=== PATIENT | male | born 1960 | race African-American/Black ===

== ENCOUNTER 2016-11-28 10:03 | Inpatient (IN) | payer OTHER ==
[~2016-11-28] VITALS: Ht 182.9 cm; Wt 78.4 kg
[~2016-11-28 10:03] MED LIST: ACTIFED PO; AMITRIPTYLINE H10 MG PO; ASPIR 8181 M1 PO; ASPIR-LOW81 MG PO; ASPIRIN325 MG PO; CARVEDILOL25 MG PO; CELEXA10 MG PO; CILOSTAZOL100 MG PO; CIPRO500 MG PO; CITALOPRAM HBR10 MG PO; CLINDAMYCIN HC300 MG PO; COREG25 M1 PO; DAILY MULTIPLE1 EACH PO; DOCUSATE SODIU100 MG PO; DOLOPHINE HCL5 MG PO; FUROSEMIDE40 MG PO; GABAPENTIN300 MG PO; GABAPENTIN600 MG PO; GLUCOPHAGE500 MG PO; LEVAQUIN500 MG PO; LEVEMIR FL100 UNIT/1 SC; LEVEMIR100 UNIT/2 SC; LISINOPRIL10 MG PO; METOPROLOL TAR100 MG PO; MUSCLE RUB CREA85 GM TP; NEURONTIN300 MG PO; NEURONTIN400 MG PO; NEURONTIN800 MG PO; NICODERM CQ1 EAC1 TD; NICOTINE PATCH1 EAC1 TD; NOVOLIN,HU100 UNITS/ SC; NOVOLOG MI100 UNIT/M SC; NOVOLOG PE100 UNITS/ SC; NOVOLOG PE100 UNITS/ SQ; OMEPRAZOLE20 M2 PO; OXAYDO5 MG PO; OXYCODONE HCL10 MG PO; OXYCODONE HCL5 MG PO; PERCOCET 5/31 TABLET PO; PLAVIX75 MG PO; PRINIVIL10 MG PO; PRINIVIL20 MG PO; ROXICODONE5 MG PO; SIMVASTATIN20 MG PO; SPIRONOLACTONE25 MG PO; STOOL SOFTENER100 MG PO; THERAGRAN1 TABLET PO; VISINE TEARS DR30 ML BOTH EYES; VITAMIN A & D60 GM TP; ZESTRIL40 MG PO
[2016-11-28 12:37] LABS: HEMATOCRIT 34.2 % (38.0-50.0); MCH 27.4 PG (29.0-34.0); MCHC 34.2 G/DL (30.0-36.0); MCV 80.1 FL (86-99); MEAN PLAT.VOLUME 9.6 uM^3 (9.0-12.4); PLATELET COUNT 296 K/uL (156-360); RBC DIS.WIDTH-CV 15.3 % (11.8-14.6); RED BLOOD COUNT 4.27 M/uL (4.00-5.50); WHITE BLOOD COUNT 6.4 K/uL (4.1-10.2)
[2016-11-28 12:46] LABS: CHLORIDE 103 mEq/L (99-109); POTASSIUM 4.6 mEq/L (3.7-5.4); SODIUM 139 mEq/L (136-147)
[2016-11-28 12:47] LABS: INTER. NORMALIZED RATIO 1.2; PTT 35.4 (25-32)
[2016-11-28 12:48] LABS: GLUCOSE 145 mg/dL (70-99)
[2016-11-28 12:50] LABS: ANION GAP 15 MEQ/L (2-14); TOTAL BILIRUBIN 0.7 mg/dL (0.0-1.0)
[2016-11-28 12:52] LABS: ALKALINE PHOSPHATASE 85 IU/L (3-129); GFR ESTIMATE (CALCULATED) > 59 mL/min/
[2016-11-28 12:53] LABS: UREA NITROGEN (BUN) 17 mg/dL (9-23)
[2016-11-28 13:02] LABS: TROP-I INTERPRETATION NEGATIVE; TROPONIN-I 0.04 ng/mL (0.0-0.30)
[2016-11-28] MEDS ORDERED: LISINOPRIL40 MG PO (13:34)
[2016-11-28] MEDS ORDERED: MAGNESIUM OXID400 MG PO (13:35)
[2016-11-28] MEDS ORDERED: SERTRALINE HCL50 MG PO (13:35)
[2016-11-28 15:41] LABS: D-DIMER ELISA 1.32 mg/L FEU (< 0.57)
[2016-11-28 15:56] LABS: HDL CHOLESTEROL 51 MG/DL (Desirable>=40); LDL CHOLESTEROL 121 mg/dL (Desirable<100); NON-HDL CHOLESTEROL 158 mg/dL (Desirable<160); TOTAL CHOLESTEROL 209 mg/dL (Desirable<200); TRIGLYCERIDES 186 MG/DL (Normal: <150)
[2016-11-28] MEDS ORDERED: NOVOLOG PE100 UNITS/ SC (17:42)
[2016-11-28] MEDS ORDERED: NOVOLOG MI100 UNIT/M SC (17:43)
[2016-11-28 18:43] LABS: POINT-OF-CARE METER ID UU14100415
[2016-11-28 19:14] LABS: TROP-I INTERPRETATION NEGATIVE; TROPONIN-I 0.06 ng/mL (0.0-0.30)
[2016-11-28 20:45] VITALS: BP 148/93
[2016-11-28 21:51] LABS: POINT-OF-CARE METER ID UU13113807
[2016-11-29] VITALS (7 sets, daily range): BP systolic 115–136; BP diastolic 74–90
[2016-11-29 03:06] LABS: TROP-I INTERPRETATION NEGATIVE; TROPONIN-I 0.05 ng/mL (0.0-0.30)
[2016-11-29 06:53] LABS: HEMATOCRIT 32.8 % (38.0-50.0); MCH 26.4 PG (29.0-34.0); MCHC 33.2 G/DL (30.0-36.0); MCV 79.4 FL (86-99); MEAN PLAT.VOLUME 9.4 uM^3 (9.0-12.4); PLATELET COUNT 249 K/uL (156-360); RBC DIS.WIDTH-CV 15.4 % (11.8-14.6); RBC DIS.WIDTH-SD 44.5 % (39-53); RED BLOOD COUNT 4.13 M/uL (4.00-5.50); WHITE BLOOD COUNT 4.5 K/uL (4.1-10.2)
[2016-11-29 07:28] LABS: ANION GAP 8 MEQ/L (2-14); CHLORIDE 102 MEQ/L (99-109); GFR ESTIMATE (CALCULATED) > 59 mL/min/; GLUCOSE 52 mg/dL (70-99); SAMPLE HEMOLYSIS CHECK 0; SAMPLE ICTERIC CHECK 0; SAMPLE LIPEMIA CHECK 0; SODIUM 138 MEQ/L (136-147); UREA NITROGEN (BUN) 16 mg/dL (9-23)
[2016-11-29 08:42] LABS: POINT-OF-CARE METER ID UU13113807
[2016-11-29 08:42] LABS: POINT-OF-CARE METER ID UU13113807
[2016-11-29 11:13] LABS: POINT-OF-CARE METER ID UU13113807
[2016-11-29 11:42] LABS: POINT-OF-CARE METER ID UU13113807
[2016-11-29 14:33] LABS: Estimated Average Glucose 146 mg/dL (70-123); HEMOGLOBIN A1c (GLYCOHEMOGLOB) 6.7 % HGB (Below 5.7)
[2016-11-29 17:07] LABS: POINT-OF-CARE METER ID UU14149398
[2016-11-29 21:46] LABS: POINT-OF-CARE METER ID UU14149398
[2016-11-30] VITALS: BP 121/72
[2016-11-30 04:09] VITALS: BP 113/66
[2016-11-30 06:12] LABS: ANION GAP 7 MEQ/L (2-14); CHLORIDE 100 MEQ/L (99-109); GFR ESTIMATE (CALCULATED) 51 mL/min/; POTASSIUM 3.8 MEQ/L (3.7-5.4); SAMPLE HEMOLYSIS CHECK 0; SAMPLE ICTERIC CHECK 0; SAMPLE LIPEMIA CHECK 0; SODIUM 138 MEQ/L (136-147); UREA NITROGEN (BUN) 21 mg/dL (9-23)
[2016-11-30 06:17] LABS: GLUCOSE 96 mg/dL (70-99)
[2016-11-30 07:57] VITALS: BP 114/63
[2016-11-30 08:20] LABS: POINT-OF-CARE METER ID UU14149396
[2016-11-30 11:23] VITALS: BP 90/66
[2016-11-30 11:50] LABS: POINT-OF-CARE METER ID UU14149396
[2016-11-30 15:53] VITALS: BP 115/72
[2016-11-30 16:28] LABS: POINT-OF-CARE METER ID UU13113807
[2016-11-30 20:08] VITALS: BP 112/68
[2016-11-30 20:26] LABS: POINT-OF-CARE METER ID UU13113807; POINT-OF-CARE USER ID 608261316
[2016-12-01 00:41] VITALS: BP 96/52
[2016-12-01 03:39] VITALS: BP 116/55
[2016-12-01 07:30] LABS: HEMATOCRIT 30.6 % (38.0-50.0); MCHC 33.7 G/DL (30.0-36.0); MCV 80.3 FL (86-99); PLATELET COUNT 229 K/uL (156-360); RBC DIS.WIDTH-CV 15.4 % (11.8-14.6); RBC DIS.WIDTH-SD 45.4 % (39-53); RED BLOOD COUNT 3.81 M/uL (4.00-5.50)
[2016-12-01 07:48] LABS: ANION GAP 9 MEQ/L (2-14); CHLORIDE 100 MEQ/L (99-109); GFR ESTIMATE (CALCULATED) > 59 mL/min/; GLUCOSE 94 mg/dL (70-99); SAMPLE HEMOLYSIS CHECK 0; SAMPLE ICTERIC CHECK 0; SAMPLE LIPEMIA CHECK 0; SODIUM 136 MEQ/L (136-147); UREA NITROGEN (BUN) 17 mg/dL (9-23)
[2016-12-01 08:00] VITALS: BP 117/61
[2016-12-01 08:18] LABS: POINT-OF-CARE METER ID UU14149396
[2016-12-01 11:08] LABS: POINT-OF-CARE METER ID UU13113675; POINT-OF-CARE USER ID 515036437
[2016-12-01 12:26] VITALS: BP 147/85
[2016-12-01 12:45] LABS: POINT-OF-CARE METER ID UU14149396
[2016-12-01 15:46] VITALS: BP 130/77
[2016-12-01 17:12] LABS: POINT-OF-CARE METER ID UU14149396
[2016-12-01 19:56] VITALS: BP 132/77
[2016-12-01 20:36] LABS: POINT-OF-CARE METER ID UU14149396
[2016-12-02] VITALS (7 sets, daily range): BP systolic 123–163; BP diastolic 66–82
[2016-12-02 08:17] LABS: POINT-OF-CARE METER ID UU14149398
[2016-12-02 11:56] LABS: POINT-OF-CARE METER ID UU14149398
[2016-12-02 16:31] LABS: POINT-OF-CARE METER ID UU14149396
[2016-12-02 21:29] LABS: POINT-OF-CARE METER ID UU13113807
[2016-12-03 03:45] VITALS: BP 135/79
[2016-12-03 06:17] LABS: HEMATOCRIT 29.4 % (38.0-50.0); MCH 26.4 PG (29.0-34.0); MCHC 32.7 G/DL (30.0-36.0); MEAN PLAT.VOLUME 9.7 uM^3 (9.0-12.4); PLATELET COUNT 184 K/uL (156-360); RBC DIS.WIDTH-CV 15.3 % (11.8-14.6); RBC DIS.WIDTH-SD 45.4 % (39-53); RED BLOOD COUNT 3.63 M/uL (4.00-5.50); WHITE BLOOD COUNT 6.6 K/uL (4.1-10.2)
[2016-12-03 06:46] LABS: ANION GAP 8 MEQ/L (2-14); CHLORIDE 102 MEQ/L (99-109); GFR ESTIMATE (CALCULATED) > 59 mL/min/; GLUCOSE 150 mg/dL (70-99); POTASSIUM 4.4 MEQ/L (3.7-5.4); SAMPLE HEMOLYSIS CHECK 0; SAMPLE ICTERIC CHECK 0; SAMPLE LIPEMIA CHECK 0; SODIUM 135 MEQ/L (136-147); UREA NITROGEN (BUN) 18 mg/dL (9-23)
[2016-12-03 08:00] VITALS: BP 128/72
[2016-12-03 08:11] LABS: POINT-OF-CARE METER ID UU13113807
[2016-12-03 12:00] VITALS: BP 142/73
[2016-12-03 12:03] LABS: POINT-OF-CARE METER ID UU13113807
[2016-12-03 15:44] VITALS: BP 163/81
[2016-12-03 17:01] LABS: POINT-OF-CARE METER ID UU13113807
[2016-12-03 20:00] VITALS: BP 134/73
[2016-12-03 21:13] LABS: POINT-OF-CARE METER ID UU13113807
[2016-12-04] VITALS (7 sets, daily range): BP systolic 139–175; BP diastolic 75–103
[2016-12-04 06:19] LABS: HEMATOCRIT 29.8 % (38.0-50.0); MCH 26.4 PG (29.0-34.0); MCHC 32.9 G/DL (30.0-36.0); MCV 80.3 FL (86-99); MEAN PLAT.VOLUME 9.6 uM^3 (9.0-12.4); PLATELET COUNT 213 K/uL (156-360); RBC DIS.WIDTH-CV 15.2 % (11.8-14.6); RBC DIS.WIDTH-SD 45.3 % (39-53); RED BLOOD COUNT 3.71 M/uL (4.00-5.50); WHITE BLOOD COUNT 5.8 K/uL (4.1-10.2)
[2016-12-04 06:42] LABS: ANION GAP 8 MEQ/L (2-14); CHLORIDE 103 MEQ/L (99-109); GFR ESTIMATE (CALCULATED) > 59 mL/min/; GLUCOSE 123 mg/dL (70-99); POTASSIUM 4.7 MEQ/L (3.7-5.4); SAMPLE HEMOLYSIS CHECK 0; SAMPLE ICTERIC CHECK 0; SAMPLE LIPEMIA CHECK 0; SODIUM 137 MEQ/L (136-147); UREA NITROGEN (BUN) 18 mg/dL (9-23)
[2016-12-04 07:22] LABS: POINT-OF-CARE METER ID UU13113807
[2016-12-04 11:50] LABS: POINT-OF-CARE METER ID UU13113807
[2016-12-04 17:00] LABS: POINT-OF-CARE METER ID UU13113807
[2016-12-04] MEDS ORDERED: PERCOCET 10/1 TABLET PO (17:07)
[2016-12-04] MEDS ORDERED: GABAPENTIN300 MG PO (17:09)
[2016-12-04 21:43] LABS: POINT-OF-CARE METER ID UU13113807
[2016-12-05] VITALS: BP 156/87
[2016-12-05 03:48] VITALS: BP 162/90
[2016-12-05] MEDS ORDERED: LEVOFLOXACIN500 MG PO (08:53)
[2016-12-05] MEDS ORDERED: ATORVASTATIN CA40 MG PO (10:05)
== END 2016-12-05 10:25 | disposition home health service (06) | DRG 239 ==
LOC: EXP 10:03 → EME 10:03 → 4SOUTH 13:27 → EDOF 13:27 → 4SOUTH 20:27
PROVIDERS: Hospitalist; Internal Medicine; Internal Medicine Cardiovascular Disease; Nurse Practitioner Adult Health; Nurse Practitioner Family; Surgery
PROC: 0Y6J0Z1 Detachment at Left Lower Leg, High, Open Approach (ICD-10-PCS; principal; 2016-12-01)
DX: I11.0 Hypertensive heart disease with heart failure (principal); I50.43 Acute on chronic combined systolic (congestive) and diastolic (congestive) heart failure; J44.0 Chronic obstructive pulmonary disease with (acute) lower respiratory infection; J18.9 Pneumonia, unspecified organism; N17.9 Acute kidney failure, unspecified; T87.44 Infection of amputation stump, left lower extremity; T82.856A Stenosis of peripheral vascular stent, initial encounter; G89.18 Other acute postprocedural pain; I73.9 Peripheral vascular disease, unspecified; I25.5 Ischemic cardiomyopathy; E11.65 Type 2 diabetes mellitus with hyperglycemia; I25.10 Atherosclerotic heart disease of native coronary artery without angina pectoris; F17.210 Nicotine dependence, cigarettes, uncomplicated; E78.5 Hyperlipidemia, unspecified; K21.9 Gastro-esophageal reflux disease without esophagitis; D64.9 Anemia, unspecified; G89.29 Other chronic pain; G54.6 Phantom limb syndrome with pain; Z95.1 Presence of aortocoronary bypass graft; Z89.511 Acquired absence of right leg below knee; Z89.512 Acquired absence of left leg below knee; I25.2 Old myocardial infarction; Z79.4 Long term (current) use of insulin; Z79.02 Long term (current) use of antithrombotics/antiplatelets; Z79.891 Long term (current) use of opiate analgesic
CPT/HCPCS: 71010; 71020; 71275; 80048; 80053; 80061; 82948; 83036; 83880; 84484; 85027; 85379; 85610; 85730; 86850; 86900; 86901; 86920; 87040; 87070; 87075; 87081; 87205; 88307; 88311; 93005; 93306; 93926; 94640; 94640 76; 94760; 94799; 99202; 99281; 99285; J0696; J1650; J1815; J1885; J1940; J1956; J2270; J7030; J7050

== ENCOUNTER 2016-12-17 07:33 | Inpatient (IN) | payer OTHER ==
[~2016-12-17] VITALS: Ht 182.9 cm; Wt 79.6 kg
[~2016-12-17 07:33] MED LIST changes: +ATORVASTATIN CA40 MG PO; +LEVOFLOXACIN500 MG PO; +LISINOPRIL40 MG PO; +MAGNESIUM OXID400 MG PO; +PERCOCET 10/1 TABLET PO; +SERTRALINE HCL50 MG PO
[2016-12-17 09:09] LABS: HEMATOCRIT 31.8 % (38.0-50.0); MCH 26.3 PG (29.0-34.0); MCHC 32.7 G/DL (30.0-36.0); MCV 80.5 FL (86-99); MEAN PLAT.VOLUME 9.3 uM^3 (9.0-12.4); PLATELET COUNT 275 K/uL (156-360); RBC DIS.WIDTH-CV 15.2 % (11.8-14.6); RBC DIS.WIDTH-SD 44.9 % (39-53); RED BLOOD COUNT 3.95 M/uL (4.00-5.50); WHITE BLOOD COUNT 7.1 K/uL (4.1-10.2)
[2016-12-17 09:40] LABS: CHLORIDE 103 mEq/L (99-109); POTASSIUM 4.6 mEq/L (3.7-5.4); SODIUM 135 mEq/L (136-147)
[2016-12-17 09:41] LABS: GLUCOSE 185 mg/dL (70-99)
[2016-12-17 09:42] LABS: TROP-I INTERPRETATION NEGATIVE; TROPONIN-I 0.02 ng/mL (0.0-0.30)
[2016-12-17 09:43] LABS: ANION GAP 11 MEQ/L (2-14)
[2016-12-17 09:45] LABS: GFR ESTIMATE (CALCULATED) > 59 mL/min/
[2016-12-17 09:46] LABS: UREA NITROGEN (BUN) 12 mg/dL (9-23)
[2016-12-17] MEDS ORDERED: PLAVIX75 MG PO (11:25)
[2016-12-17] MEDS ORDERED: VISINE TEARS DR30 ML BOTH EYES (11:26)
[2016-12-17] MEDS ORDERED: NICOTINE PATCH1 EAC1 TD (11:26)
[2016-12-17 12:02] VITALS: BP 180/88
[2016-12-17 12:13] VITALS: BP 180/88
[2016-12-17 15:03] VITALS: BP 187/92
[2016-12-17 15:57] LABS: POINT-OF-CARE METER ID UU14188625
[2016-12-17 19:27] VITALS: BP 183/95
[2016-12-17 20:42] VITALS: BP 168/90
[2016-12-17 21:07] LABS: POINT-OF-CARE METER ID UU14188625
[2016-12-17 23:40] VITALS: BP 168/96
[2016-12-18 03:58] VITALS: BP 161/97
[2016-12-18 07:25] LABS: HEMATOCRIT 31.6 % (38.0-50.0); MCH 26.3 PG (29.0-34.0); MCHC 32.9 G/DL (30.0-36.0); MEAN PLAT.VOLUME 10.1 uM^3 (9.0-12.4); PLATELET COUNT 302 K/uL (156-360); RBC DIS.WIDTH-CV 15.7 % (11.8-14.6); RBC DIS.WIDTH-SD 45.7 % (39-53); RED BLOOD COUNT 3.95 M/uL (4.00-5.50); WHITE BLOOD COUNT 6.4 K/uL (4.1-10.2)
[2016-12-18 07:33] LABS: POINT-OF-CARE METER ID UU14174225
[2016-12-18 07:43] VITALS: BP 166/99
[2016-12-18 07:43] LABS: ANION GAP 8 MEQ/L (2-14); CHLORIDE 100 MEQ/L (99-109); GFR ESTIMATE (CALCULATED) > 59 mL/min/; SAMPLE HEMOLYSIS CHECK 0; SAMPLE ICTERIC CHECK 0; SAMPLE LIPEMIA CHECK 0; SODIUM 138 MEQ/L (136-147); UREA NITROGEN (BUN) 13 mg/dL (9-23)
[2016-12-18 08:06] LABS: GLUCOSE 55 mg/dL (70-99); POTASSIUM 3.5 MEQ/L (3.7-5.4)
[2016-12-18 11:16] VITALS: BP 160/90
[2016-12-18 15:20] VITALS: BP 131/76
== END 2016-12-18 15:58 | disposition left against medical advice (07) | DRG 293 ==
LOC: EME → EDBD 07:33 → EDOF 10:39 → 5SOUTH 10:39 → EDOF 10:53 → 5SOUTH 12:04
PROVIDERS: Emergency Medicine; Hospitalist; Internal Medicine
DX: I50.23 Acute on chronic systolic (congestive) heart failure (principal); I25.5 Ischemic cardiomyopathy; I25.10 Atherosclerotic heart disease of native coronary artery without angina pectoris; Z95.1 Presence of aortocoronary bypass graft; I11.0 Hypertensive heart disease with heart failure; Z87.01 Personal history of pneumonia (recurrent); G54.6 Phantom limb syndrome with pain; G89.29 Other chronic pain; E11.65 Type 2 diabetes mellitus with hyperglycemia; I73.9 Peripheral vascular disease, unspecified; E78.5 Hyperlipidemia, unspecified; Z79.4 Long term (current) use of insulin; Z79.82 Long term (current) use of aspirin; Z87.891 Personal history of nicotine dependence; Z89.511 Acquired absence of right leg below knee; Z89.512 Acquired absence of left leg below knee
CPT/HCPCS: 71010; 80048; 81003; 82948; 83880; 84484; 85027; 87040; 93005; 94640; 94640 76; 94760; 94799; 99202; 99281; 99285; J1644; J1815; J1940; J2270

== ENCOUNTER 2017-01-11 12:29 | Inpatient (IN) | payer OTHER ==
[~2017-01-11] VITALS: Ht 182.9 cm; Wt 81.4 kg
[2017-01-11 13:11] LABS: CHLORIDE 103 mEq/L (99-109); POTASSIUM 5.5 mEq/L (3.7-5.4); SODIUM 137 mEq/L (136-147)
[2017-01-11 13:13] LABS: GLUCOSE 146 mg/dL (70-99)
[2017-01-11 13:15] LABS: ANION GAP 11 MEQ/L (2-14); TOTAL BILIRUBIN 0.6 mg/dL (0.0-1.0)
[2017-01-11 13:17] LABS: ALKALINE PHOSPHATASE 166 IU/L (3-129); GFR ESTIMATE (CALCULATED) > 59 mL/min/
[2017-01-11 13:18] LABS: UREA NITROGEN (BUN) 16 mg/dL (9-23)
[2017-01-11 13:20] LABS: TROP-I INTERPRETATION NEGATIVE; TROPONIN-I 0.02 ng/mL (0.0-0.30)
[2017-01-11 13:23] LABS: BASE EXCESS 1.7 mEq/L (-3 to +3); BICARBONATE 25.7 mEq/L (22-26); CARBOXY HGB 2.6 % (0-5); METHEMOGLOBIN 1.2 % (0-1.5); PCO2 37 mm Hg (35-45); PO2 389 mm Hg (80-100); pH 7.45 (7.35-7.45)
[2017-01-11 13:24] LABS: COMMENTS - BLOOD GASES A+C+; DEVICE 980 PB MASK; FI02 100 %; MODE SPONT NIV; PEEP 8 CM/H20; PRES. SUPPORT 12 CM/H2O; SITE LR; TOTAL RESP RATE 22 resp/min
[2017-01-11 13:25] LABS: EOSINOPHIL (%) 0.6 % (0-5); IMMATURE GRANULOCYTE (%) 0.6 % (0.0-0.7); INSTRUMENT ABS NEUTROPHIL CT 5.6 K/uL; LYMPHOCYTE COUNT 0.7 K/uL (1.0-2.8); MCH 26.3 PG (29.0-34.0); MCHC 32.8 G/DL (30.0-36.0); MCV 80.2 FL (86-99); MEAN PLAT.VOLUME 10.2 uM^3 (9.0-12.4); MONOCYTE (%) 6.2 % (3-12); MONOCYTE COUNT 0.4 K/uL (0-0.8); NEUTROPHIL (%) 82.5 % (45-76); NEUTROPHIL COUNT 5.6 K/uL (1.8-6.4); PLATELET COUNT 235 K/uL (156-360); RBC DIS.WIDTH-CV 15.9 % (11.8-14.6); RBC DIS.WIDTH-SD 46.5 % (39-53); RED BLOOD COUNT 3.99 M/uL (4.00-5.50); WHITE BLOOD COUNT 6.8 K/uL (4.1-10.2)
[2017-01-11] MEDS ORDERED: OXYCODONE HCL10 MG PO (14:25)
[2017-01-12] VITALS (7 sets, daily range): BP systolic 135–161; BP diastolic 77–91
[2017-01-12 08:57] LABS: HEMATOCRIT 28.2 % (38.0-50.0); MCH 26.4 PG (29.0-34.0); MCHC 33.7 G/DL (30.0-36.0); MCV 78.3 FL (86-99); MEAN PLAT.VOLUME 9.9 uM^3 (9.0-12.4); PLATELET COUNT 220 K/uL (156-360); RBC DIS.WIDTH-CV 15.7 % (11.8-14.6); RBC DIS.WIDTH-SD 44.4 % (39-53); WHITE BLOOD COUNT 4.8 K/uL (4.1-10.2)
[2017-01-12 09:22] LABS: ANION GAP 9 MEQ/L (2-14); CHLORIDE 100 MEQ/L (99-109); GFR ESTIMATE (CALCULATED) > 59 mL/min/; GLUCOSE 198 mg/dL (70-99); POTASSIUM 4.5 MEQ/L (3.7-5.4); SAMPLE HEMOLYSIS CHECK 0; SAMPLE ICTERIC CHECK 0; SAMPLE LIPEMIA CHECK 0; SODIUM 135 MEQ/L (136-147)
[2017-01-12 09:25] LABS: UREA NITROGEN (BUN) 25 mg/dL (9-23)
[2017-01-12] MEDS ORDERED: CATAPRES0.1 MG PO (11:50)
[2017-01-12] MEDS ORDERED: COREG25 M1 PO (11:50)
[2017-01-12] MEDS ORDERED: LOW DOSE ASPIRI81 M1 PO (11:50)
[2017-01-12 11:51] LABS: POINT-OF-CARE METER ID UU14174216
[2017-01-12] MEDS ORDERED: ZESTRIL40 MG PO (11:51)
[2017-01-12] MEDS ORDERED: PLAVIX75 MG PO (11:51)
[2017-01-12] MEDS ORDERED: NEURONTIN400 MG PO (11:51)
[2017-01-12] MEDS ORDERED: MAGNESIUM400 M1 PO (11:52)
[2017-01-12] MEDS ORDERED: NOVOLOG MI100 UNIT/M SC ×2 (11:52→11:53)
[2017-01-12] MEDS ORDERED: ZOLOFT50 MG PO (11:54)
[2017-01-12] MEDS ORDERED: ZOCOR40 MG PO (11:54)
[2017-01-12] MEDS ORDERED: OXYCODONE HCL10 MG PO (11:54)
[2017-01-12] MEDS ORDERED: NICODERM CQ1 EAC1 TD (11:57)
[2017-01-12 17:23] LABS: POINT-OF-CARE METER ID UU14174225
[2017-01-13] VITALS (9 sets, daily range): BP systolic 146–191; BP diastolic 71–96
[2017-01-13 12:45] LABS: HEMATOCRIT 29.6 % (38.0-50.0); MCH 25.5 PG (29.0-34.0); MCHC 32.4 G/DL (30.0-36.0); MCV 78.7 FL (86-99); MEAN PLAT.VOLUME 9.8 uM^3 (9.0-12.4); PLATELET COUNT 246 K/uL (156-360); RBC DIS.WIDTH-CV 15.8 % (11.8-14.6); RBC DIS.WIDTH-SD 45.2 % (39-53); RED BLOOD COUNT 3.76 M/uL (4.00-5.50); WHITE BLOOD COUNT 5.7 K/uL (4.1-10.2)
[2017-01-13 12:46] LABS: ANION GAP 8 MEQ/L (2-14); CHLORIDE 98 MEQ/L (99-109); GFR ESTIMATE (CALCULATED) > 59 mL/min/; GLUCOSE 145 mg/dL (70-99); POTASSIUM 4.3 MEQ/L (3.7-5.4); SAMPLE HEMOLYSIS CHECK 0; SAMPLE ICTERIC CHECK 0; SAMPLE LIPEMIA CHECK 0; SODIUM 136 MEQ/L (136-147); UREA NITROGEN (BUN) 21 mg/dL (9-23)
[2017-01-14 06:41] LABS: HEMATOCRIT 30.8 % (38.0-50.0); MCH 25.7 PG (29.0-34.0); MCHC 32.5 G/DL (30.0-36.0); MCV 79.2 FL (86-99); MEAN PLAT.VOLUME 9.8 uM^3 (9.0-12.4); PLATELET COUNT 255 K/uL (156-360); RBC DIS.WIDTH-CV 15.6 % (11.8-14.6); RBC DIS.WIDTH-SD 44.9 % (39-53); RED BLOOD COUNT 3.89 M/uL (4.00-5.50); WHITE BLOOD COUNT 4.8 K/uL (4.1-10.2)
[2017-01-14 07:05] LABS: ANION GAP 8 MEQ/L (2-14); CHLORIDE 97 MEQ/L (99-109); GFR ESTIMATE (CALCULATED) > 59 mL/min/; GLUCOSE 153 mg/dL (70-99); IRON 47 MCG/DL (35-150); POTASSIUM 3.8 MEQ/L (3.7-5.4); SAMPLE HEMOLYSIS CHECK 0; SAMPLE ICTERIC CHECK 0; SAMPLE LIPEMIA CHECK 0; SODIUM 137 MEQ/L (136-147); UREA NITROGEN (BUN) 17 mg/dL (9-23)
[2017-01-14 07:33] VITALS: BP 140/70
[2017-01-14 08:26] LABS: FERRITIN 90 NG/ML (22-322)
[2017-01-14 11:07] VITALS: BP 153/84
[2017-01-14] MEDS ORDERED: LASIX40 MG PO (11:54)
== END 2017-01-14 13:55 | disposition home or self-care (01) | DRG 189 ==
LOC: EME → EDBD 12:29 → EDOF 16:03 → 4EAST 16:03 → EDOF 18:53 → 4EAST 01-12 00:01 → 5SOUTH 01-12 13:00
PROVIDERS: Emergency Medicine; Internal Medicine; Internal Medicine Cardiovascular Disease; Physician Assistant; Physician Assistant Medical; Student in an Organized Health Care Education/Training Program
DX: J96.01 Acute respiratory failure with hypoxia (principal); I50.22 Chronic systolic (congestive) heart failure; J81.1 Chronic pulmonary edema; J44.1 Chronic obstructive pulmonary disease with (acute) exacerbation; I16.1 Hypertensive emergency; E11.52 Type 2 diabetes mellitus with diabetic peripheral angiopathy with gangrene; G89.29 Other chronic pain; E78.5 Hyperlipidemia, unspecified; I25.10 Atherosclerotic heart disease of native coronary artery without angina pectoris; R26.2 Difficulty in walking, not elsewhere classified; G54.6 Phantom limb syndrome with pain; D64.9 Anemia, unspecified; Z91.11 Patient's noncompliance with dietary regimen
CPT/HCPCS: 36600; 71010; 80048; 80053; 82607; 82728; 82746; 82803; 82948; 83540; 83735; 83880; 84466; 84484; 85025; 85025 91; 85027; 93005; 94002; 94640; 94640 76; 94799; 99202; 99281; 99285; J0360; J1650; J1815; J1940; J2930; J3010

== ENCOUNTER 2017-04-13 18:27 | Inpatient (IN) | payer OTHER ==
[~2017-04-13] VITALS: Ht 180.3 cm; Wt 66.2 kg
[~2017-04-13 18:27] MED LIST changes: +CATAPRES0.1 MG PO; +LASIX40 MG PO; +LOW DOSE ASPIRI81 M1 PO; +MAGNESIUM400 M1 PO; +ZOCOR40 MG PO; +ZOLOFT50 MG PO
[2017-04-13 20:38] LABS: HEMATOCRIT 33.5 % (38.0-50.0); MCH 25.5 PG (29.0-34.0); MCHC 33.4 G/DL (30.0-36.0); MCV 76.3 FL (86-99); MEAN PLAT.VOLUME 9.3 uM^3 (9.0-12.4); PLATELET COUNT 232 K/uL (156-360); RBC DIS.WIDTH-CV 19.3 % (11.8-14.6); RBC DIS.WIDTH-SD 53.5 % (39-53); RED BLOOD COUNT 4.39 M/uL (4.00-5.50); WHITE BLOOD COUNT 6.7 K/uL (4.1-10.2)
[2017-04-13 20:47] LABS: CHLORIDE 97 mEq/L (99-109); POTASSIUM 4.5 mEq/L (3.7-5.4); SODIUM 131 mEq/L (136-147)
[2017-04-13 20:48] LABS: GLUCOSE 222 mg/dL (70-99)
[2017-04-13 20:50] LABS: ANION GAP 8 MEQ/L (2-14)
[2017-04-13 20:52] LABS: GFR ESTIMATE (CALCULATED) > 59 mL/min/
[2017-04-13 20:53] LABS: UREA NITROGEN (BUN) 10 mg/dL (9-23)
[2017-04-13 20:59] LABS: TROP-I INTERPRETATION NEGATIVE; TROPONIN-I < 0.01 ng/mL (0.0-0.30)
[2017-04-13] MEDS ORDERED: NEURONTIN800 MG PO (22:13)
[2017-04-13] MEDS ORDERED: ZOLOFT100 MG PO (22:13)
[2017-04-13] MEDS ORDERED: ZOCOR20 MG PO (22:13)
[2017-04-14 03:49] LABS: TROP-I INTERPRETATION NEGATIVE; TROPONIN-I < 0.01 ng/mL (0.0-0.30)
[2017-04-14 07:32] LABS: POINT-OF-CARE METER ID UU13113702
[2017-04-14 09:31] LABS: EOSINOPHIL (%) 4.7 % (0-5); EOSINOPHIL COUNT 0.3 K/uL (0-0.3); HEMATOCRIT 30.6 % (38.0-50.0); IMMATURE GRANULOCYTE (%) 0.5 % (0.0-0.7); INSTRUMENT ABS NEUTROPHIL CT 3.7 K/uL; MCH 25.4 PG (29.0-34.0); MCHC 32.7 G/DL (30.0-36.0); MCV 77.7 FL (86-99); MEAN PLAT.VOLUME 9.6 uM^3 (9.0-12.4); MONOCYTE (%) 13.7 % (3-12); MONOCYTE COUNT 0.8 K/uL (0-0.8); NEUTROPHIL (%) 64.4 % (45-76); NEUTROPHIL COUNT 3.7 K/uL (1.8-6.4); PLATELET COUNT 228 K/uL (156-360); RBC DIS.WIDTH-CV 19.3 % (11.8-14.6); RBC DIS.WIDTH-SD 54.1 % (39-53); RED BLOOD COUNT 3.94 M/uL (4.00-5.50); WHITE BLOOD COUNT 5.8 K/uL (4.1-10.2)
[2017-04-14 09:43] LABS: CHLORIDE 100 mEq/L (99-109); POTASSIUM 4.3 mEq/L (3.7-5.4); SODIUM 134 mEq/L (136-147)
[2017-04-14 09:45] LABS: GLUCOSE 147 mg/dL (70-99)
[2017-04-14 09:47] LABS: ANION GAP 10 MEQ/L (2-14)
[2017-04-14 09:49] LABS: GFR ESTIMATE (CALCULATED) > 59 mL/min/
[2017-04-14 09:50] LABS: UREA NITROGEN (BUN) 11 mg/dL (9-23)
[2017-04-14 09:54] LABS: TROP-I INTERPRETATION NEGATIVE; TROPONIN-I < 0.01 ng/mL (0.0-0.30)
[2017-04-14 11:47] LABS: POINT-OF-CARE METER ID UU13113702
[2017-04-14 15:18] LABS: POINT-OF-CARE METER ID UU13113702
[2017-04-14 17:30] VITALS: BP 150/88
[2017-04-14 23:50] VITALS: BP 155/97
[2017-04-15 06:11] LABS: EOSINOPHIL (%) 1.7 % (0-5); EOSINOPHIL COUNT 0.1 K/uL (0-0.3); HEMATOCRIT 33.1 % (38.0-50.0); IMMATURE GRANULOCYTE (%) 0.5 % (0.0-0.7); INSTRUMENT ABS NEUTROPHIL CT 6.3 K/uL; LYMPHOCYTE COUNT 0.8 K/uL (1.0-2.8); MCH 25.7 PG (29.0-34.0); MCHC 33.2 G/DL (30.0-36.0); MCV 77.3 FL (86-99); MEAN PLAT.VOLUME 9.3 uM^3 (9.0-12.4); MONOCYTE COUNT 0.9 K/uL (0-0.8); NEUTROPHIL (%) 76.5 % (45-76); NEUTROPHIL COUNT 6.3 K/uL (1.8-6.4); PLATELET COUNT 292 K/uL (156-360); RBC DIS.WIDTH-CV 19.6 % (11.8-14.6); RBC DIS.WIDTH-SD 54.2 % (39-53); RED BLOOD COUNT 4.28 M/uL (4.00-5.50); WHITE BLOOD COUNT 8.3 K/uL (4.1-10.2)
[2017-04-15 06:50] LABS: ANION GAP 10 MEQ/L (2-14); CHLORIDE 99 MEQ/L (99-109); GFR ESTIMATE (CALCULATED) > 59 mL/min/; POTASSIUM 4.1 MEQ/L (3.7-5.4); SAMPLE HEMOLYSIS CHECK 0; SAMPLE ICTERIC CHECK 0; SAMPLE LIPEMIA CHECK 0; SODIUM 137 MEQ/L (136-147); UREA NITROGEN (BUN) 14 mg/dL (9-23)
[2017-04-15 06:51] LABS: GLUCOSE 26 mg/dL (70-99)
[2017-04-15 07:30] VITALS: BP 143/75
[2017-04-15 07:46] LABS: POINT-OF-CARE METER ID UU13113725
[2017-04-15 11:06] LABS: POINT-OF-CARE METER ID UU13113725
[2017-04-15 11:28] LABS: POINT-OF-CARE METER ID UU13113725
[2017-04-15 12:08] LABS: POINT-OF-CARE METER ID UU13113725
[2017-04-15 13:19] LABS: POINT-OF-CARE METER ID UU13113725
[2017-04-15 15:23] VITALS: BP 156/85
[2017-04-15 17:02] LABS: POINT-OF-CARE METER ID UU13113725
[2017-04-15 19:22] VITALS: BP 144/79
[2017-04-15 21:06] LABS: POINT-OF-CARE METER ID UU13113725
[2017-04-15 23:02] VITALS: BP 122/74
[2017-04-16 07:30] VITALS: BP 137/84
[2017-04-16 11:33] LABS: ANION GAP 8 MEQ/L (2-14); CHLORIDE 95 MEQ/L (99-109); GFR ESTIMATE (CALCULATED) > 59 mL/min/; GLUCOSE 235 mg/dL (70-99); POTASSIUM 4.3 MEQ/L (3.7-5.4); SAMPLE HEMOLYSIS CHECK 0; SAMPLE ICTERIC CHECK 0; SAMPLE LIPEMIA CHECK 0; SODIUM 132 MEQ/L (136-147); UREA NITROGEN (BUN) 16 mg/dL (9-23)
[2017-04-16 11:44] LABS: POINT-OF-CARE METER ID UU13113725
[2017-04-16 12:25] VITALS: BP 131/67
[2017-04-16 12:45] LABS: POINT-OF-CARE METER ID UU13113725
[2017-04-16 16:01] VITALS: BP 132/85
[2017-04-16 19:16] VITALS: BP 141/82
[2017-04-16 23:50] VITALS: BP 146/86
[2017-04-17 05:02] VITALS: BP 140/64
[2017-04-17 05:50] LABS: POINT-OF-CARE METER ID UU13113725
[2017-04-17 06:35] LABS: MCH 26.3 PG (29.0-34.0); MCHC 34.5 G/DL (30.0-36.0); MCV 76.3 FL (86-99); MEAN PLAT.VOLUME 9.9 uM^3 (9.0-12.4); PLATELET COUNT 244 K/uL (156-360); RBC DIS.WIDTH-CV 18.8 % (11.8-14.6); WHITE BLOOD COUNT 11.2 K/uL (4.1-10.2)
[2017-04-17 07:05] VITALS: BP 153/86
[2017-04-17 07:22] LABS: ANION GAP 12 MEQ/L (2-14); CHLORIDE 94 MEQ/L (99-109); GFR ESTIMATE (CALCULATED) > 59 mL/min/; GLUCOSE 211 mg/dL (70-99); POTASSIUM 4.5 MEQ/L (3.7-5.4); SAMPLE HEMOLYSIS CHECK 0; SAMPLE ICTERIC CHECK 0; SAMPLE LIPEMIA CHECK 0; SODIUM 133 MEQ/L (136-147); UREA NITROGEN (BUN) 19 mg/dL (9-23)
[2017-04-17 10:28] LABS: INTER. NORMALIZED RATIO 1.3; PROTHROMBIN TIME 13.6 (9.2-11.2); PTT 38.4 (25-32)
[2017-04-17 11:30] VITALS: BP 128/78
[2017-04-17 11:43] LABS: POINT-OF-CARE METER ID UU13113725
[2017-04-17 15:29] VITALS: BP 146/81
[2017-04-17 16:23] LABS: POINT-OF-CARE METER ID UU13113725
[2017-04-17 20:24] VITALS: BP 134/76
[2017-04-17 21:30] LABS: POINT-OF-CARE METER ID UU13113725
[2017-04-17 22:30] VITALS: BP 144/79
[2017-04-18 06:41] VITALS: BP 154/80
[2017-04-18 07:01] LABS: HEMATOCRIT 28.4 % (38.0-50.0); MCH 25.3 PG (29.0-34.0); MCHC 33.1 G/DL (30.0-36.0); MCV 76.5 FL (86-99); PLATELET COUNT 218 K/uL (156-360); RBC DIS.WIDTH-CV 18.5 % (11.8-14.6); RBC DIS.WIDTH-SD 51.3 % (39-53); RED BLOOD COUNT 3.71 M/uL (4.00-5.50); WHITE BLOOD COUNT 15.1 K/uL (4.1-10.2)
[2017-04-18 07:20] LABS: ANION GAP 14 MEQ/L (2-14); CHLORIDE 92 MEQ/L (99-109); GFR ESTIMATE (CALCULATED) > 59 mL/min/; GLUCOSE 212 mg/dL (70-99); POTASSIUM 4.4 MEQ/L (3.7-5.4); SAMPLE HEMOLYSIS CHECK 0; SAMPLE ICTERIC CHECK 0; SAMPLE LIPEMIA CHECK 0; SODIUM 133 MEQ/L (136-147); UREA NITROGEN (BUN) 24 mg/dL (9-23)
[2017-04-18 11:05] VITALS: BP 124/71
[2017-04-18 11:26] LABS: POINT-OF-CARE METER ID UU13113725
[2017-04-18 12:48] LABS: TYPE OF FLUID PLEURAL
[2017-04-18 13:12] LABS: GLUCOSE 154 mg/dL (70-99); LACTATE DEHYDROGENASE 232 IU/L (20-246)
[2017-04-18 13:27] LABS: BODY FLUID LDH 99 IU/L; BODY FLUID PROTEIN < 3.0 G/DL
[2017-04-18 13:33] LABS: BODY FLUID RBC'S 1000 /MM^3 (0-100); BODY FLUID WBC'S 450 /MM^3 (0-500)
[2017-04-18 13:34] LABS: BODY FLUID EOSINOPHILS 2 % (0-25); MONONUCLEAR WBC'S 5 %; POLYNUCLEAR WBC'S 93 % (0-25)
[2017-04-18 15:18] VITALS: BP 119/68
[2017-04-18 16:18] LABS: POINT-OF-CARE METER ID UU13113725
[2017-04-18 19:30] VITALS: BP 121/73
[2017-04-18 20:11] LABS: BASE EXCESS 8.8 mEq/L (-3 to +3); CARBOXY HGB 2.6 % (0-5); METHEMOGLOBIN 1.9 % (0-1.5)
[2017-04-18 20:12] LABS: BICARBONATE 32.8 mEq/L (22-26); DEVICE HFNC; O2 FLOW 12 L/MIN; PCO2 42 mm Hg (35-45); PO2 47 mm Hg (80-100); SITE LR
[2017-04-18 20:45] LABS: POINT-OF-CARE METER ID UU13113725
[2017-04-18 21:23] VITALS: BP 127/72
[2017-04-18 23:38] LABS: ADD MIUA? YES; BILIRUBIN NEGATIVE; BLOOD SMALL; COLOR YELLOW ((YELLOW)); GLUCOSE (STRIP) 50; KETONES 5; LEUKOCYTES NEGATIVE; NITRITE NEGATIVE; PROTEIN (STRIP) 100; SPECIFIC GRAVITY 1.011 (1.000-1.030)
[2017-04-18 23:46] LABS: BACTERIA NONE SEEN /HPF; EPITHELIAL CELLS NONE SEEN /HPF; MUCUS NONE SEEN /LPF; WHITE BLOOD CELLS 0-5 /HPF (0-5)
[2017-04-19] VITALS (14 sets, daily range): BP systolic 108–129; BP diastolic 60–71
[2017-04-19 06:10] LABS: POINT-OF-CARE METER ID UU13113725
[2017-04-19 09:51] LABS: EOSINOPHIL (%) 0 % (0-5); HEMATOCRIT 27.6 % (38.0-50.0); IMMATURE GRANULOCYTE (%) 1.1 % (0.0-0.7); IMMATURE GRANULOCYTE COUNT 0.2 K/uL; INSTRUMENT ABS NEUTROPHIL CT 13.6 K/uL; LYMPHOCYTE COUNT 0.4 K/uL (1.0-2.8); MCHC 34.1 G/DL (30.0-36.0); MCV 76.2 FL (86-99); MEAN PLAT.VOLUME 10.5 uM^3 (9.0-12.4); MONOCYTE (%) 5.1 % (3-12); MONOCYTE COUNT 0.8 K/uL (0-0.8); NEUTROPHIL (%) 91.2 % (45-76); NEUTROPHIL COUNT 13.6 K/uL (1.8-6.4); PLATELET COUNT 230 K/uL (156-360); RBC DIS.WIDTH-CV 18.6 % (11.8-14.6); RBC DIS.WIDTH-SD 51.2 % (39-53); RED BLOOD COUNT 3.62 M/uL (4.00-5.50)
[2017-04-19 10:49] LABS: ANION GAP 11 MEQ/L (2-14); CHLORIDE 92 MEQ/L (99-109); GFR ESTIMATE (CALCULATED) > 59 mL/min/; GLUCOSE 183 mg/dL (70-99); MAGNESIUM 1.6 mg/dl (1.3-2.7); POTASSIUM 3.9 MEQ/L (3.7-5.4); SAMPLE HEMOLYSIS CHECK 0; SAMPLE ICTERIC CHECK 0; SAMPLE LIPEMIA CHECK 0; SODIUM 131 MEQ/L (136-147); UREA NITROGEN (BUN) 29 mg/dL (9-23)
[2017-04-19 13:39] LABS: BASE EXCESS 9.7 mEq/L (-3 to +3); BICARBONATE 34.8 mEq/L (22-26); COMMENTS - BLOOD GASES A+C+; DEVICE HHFNC; FI02 100 %; METHEMOGLOBIN 1.5 % (0-1.5); O2 FLOW 40 L/MIN; PCO2 49 mm Hg (35-45); PO2 48 mm Hg (80-100); SITE RR; pH 7.46 (7.35-7.45)
[2017-04-19 14:21] LABS: BASE EXCESS 8.6 mEq/L (-3 to +3); BICARBONATE 32.8 mEq/L (22-26); CARBOXY HGB 1.9 % (0-5); METHEMOGLOBIN 1.4 % (0-1.5); pH 7.49 (7.35-7.45)
[2017-04-19 14:22] LABS: COMMENTS - BLOOD GASES NEG A+C+; DEVICE HHFNC; FI02 100 %; O2 FLOW 25 L/MIN; PCO2 43 mm Hg (35-45); PO2 91 mm Hg (80-100); SITE LR; TOTAL RESP RATE 16 resp/min
[2017-04-19 16:05] LABS: METH RESISTANT S AUREUS PCR NEGATIVE (NEGATIVE)
[2017-04-19 16:07] LABS: PROBE CHECK PASS; SPECIMEN PROCESSING CONTROL PASS
[2017-04-19 16:43] LABS: ADD MIUA? YES; BILIRUBIN NEGATIVE; BLOOD SMALL; COLOR STRAW ((YELLOW)); GLUCOSE (STRIP) NEGATIVE; KETONES NEGATIVE; LEUKOCYTES NEGATIVE; NITRITE NEGATIVE; PROTEIN (STRIP) NEGATIVE; SPECIFIC GRAVITY 1.005 (1.000-1.030)
[2017-04-19 16:50] LABS: BACTERIA RARE /HPF; EPITHELIAL CELLS NONE SEEN /HPF; MUCUS NONE SEEN /LPF; RED BLOOD CELLS 0-5 /HPF (0-5); UCUL ADDED? NO; WHITE BLOOD CELLS 0-5 /HPF (0-5)
[2017-04-19 17:29] LABS: POINT-OF-CARE METER ID UU14174217
[2017-04-19 18:20] LABS: UR CREATININE CONCENTRATION 16.3 MG/DL
[2017-04-19 18:55] LABS: TROP-I INTERPRETATION NEGATIVE; TROPONIN-I 0.01 ng/mL (0.0-0.30)
[2017-04-19 19:19] LABS: CK-MB 0.4 ng/mL (0.0-4.9)
[2017-04-19 19:34] LABS: CREATINE KINASE 38 IU/L (1-294); TOTAL CK 38 IU/L (1-294)
[2017-04-19 21:28] LABS: BASE EXCESS 10.5 mEq/L (-3 to +3); BICARBONATE 35.6 mEq/L (22-26); CARBOXY HGB 2.1 % (0-5); METHEMOGLOBIN 1.9 % (0-1.5); pH 7.46 (7.35-7.45)
[2017-04-19 21:29] LABS: COMMENTS - BLOOD GASES C+A+; DEVICE HHFNC; FI02 100 %; O2 FLOW 70 L/MIN; PCO2 50 mm Hg (35-45); PO2 55 mm Hg (80-100); SITE LR; TOTAL RESP RATE 20 resp/min
[2017-04-19 22:34] LABS: POINT-OF-CARE METER ID UU14174217
[2017-04-20] VITALS (17 sets, daily range): BP systolic 89–124; BP diastolic 52–68
[2017-04-20 01:02] LABS: CREATINE KINASE 32 IU/L (1-294); TOTAL CK 32 IU/L (1-294)
[2017-04-20 01:03] LABS: TROP-I INTERPRETATION NEGATIVE; TROPONIN-I < 0.01 ng/mL (0.0-0.30)
[2017-04-20 01:08] LABS: CK-MB 0.4 ng/mL (0.0-4.9)
[2017-04-20 03:31] LABS: BASE EXCESS 10.1 mEq/L (-3 to +3); BICARBONATE 35.4 mEq/L (22-26); CARBOXY HGB 2.1 % (0-5); COMMENTS - BLOOD GASES C+A+; CONTINUOUS POS AIRWAY PRESSURE 5 cm H2O; DEVICE BIPAP; METHEMOGLOBIN 1.4 % (0-1.5); O2 FLOW 15 L/MIN; PCO2 51 mm Hg (35-45); PO2 51 mm Hg (80-100); PRES. SUPPORT 10 CM/H2O; SITE RR; TOTAL RESP RATE 18 resp/min; pH 7.45 (7.35-7.45)
[2017-04-20 05:43] LABS: EOSINOPHIL (%) 0.4 % (0-5); EOSINOPHIL COUNT 0.1 K/uL (0-0.3); HEMATOCRIT 27.5 % (38.0-50.0); IMMATURE GRANULOCYTE (%) 1.2 % (0.0-0.7); IMMATURE GRANULOCYTE COUNT 0.2 K/uL; INSTRUMENT ABS NEUTROPHIL CT 12.6 K/uL; LYMPHOCYTE COUNT 0.3 K/uL (1.0-2.8); MCHC 34.2 G/DL (30.0-36.0); MEAN PLAT.VOLUME 9.8 uM^3 (9.0-12.4); MONOCYTE (%) 5.2 % (3-12); MONOCYTE COUNT 0.7 K/uL (0-0.8); NEUTROPHIL (%) 91.1 % (45-76); NEUTROPHIL COUNT 12.6 K/uL (1.8-6.4); PLATELET COUNT 230 K/uL (156-360); RBC DIS.WIDTH-CV 18.1 % (11.8-14.6); RBC DIS.WIDTH-SD 50.1 % (39-53); RED BLOOD COUNT 3.62 M/uL (4.00-5.50); WHITE BLOOD COUNT 13.8 K/uL (4.1-10.2)
[2017-04-20 05:54] LABS: ANION GAP 7 MEQ/L (2-14); CHLORIDE 93 MEQ/L (99-109); DIRECT BILIRUBIN 0.6 mg/dL (0.0-0.3); GFR ESTIMATE (CALCULATED) > 59 mL/min/; GLUCOSE 184 mg/dL (70-99); POTASSIUM 3.7 MEQ/L (3.7-5.4); SAMPLE HEMOLYSIS CHECK 0; SAMPLE ICTERIC CHECK 0; SAMPLE LIPEMIA CHECK 0; SODIUM 133 MEQ/L (136-147); UREA NITROGEN (BUN) 29 mg/dL (9-23)
[2017-04-20 06:00] LABS: ALKALINE PHOSPHATASE 55 IU/L (3-129)
[2017-04-20 16:43] LABS: POINT-OF-CARE METER ID UU14174217
[2017-04-20 17:45] LABS: POINT-OF-CARE METER ID UU14174217
[2017-04-20 21:48] LABS: POINT-OF-CARE METER ID UU14174217
[2017-04-21] VITALS (18 sets, daily range): BP systolic 90–115; BP diastolic 48–68
[2017-04-21 04:30] LABS: EOSINOPHIL (%) 3.5 % (0-5); EOSINOPHIL COUNT 0.4 K/uL (0-0.3); HEMATOCRIT 26.2 % (38.0-50.0); IMMATURE GRANULOCYTE COUNT 0.1 K/uL; INSTRUMENT ABS NEUTROPHIL CT 9.9 K/uL; LYMPHOCYTE COUNT 0.5 K/uL (1.0-2.8); MCH 25.2 PG (29.0-34.0); MCHC 33.2 G/DL (30.0-36.0); MCV 75.9 FL (86-99); MEAN PLAT.VOLUME 9.6 uM^3 (9.0-12.4); MONOCYTE (%) 6.1 % (3-12); MONOCYTE COUNT 0.7 K/uL (0-0.8); NEUTROPHIL (%) 84.8 % (45-76); NEUTROPHIL COUNT 9.9 K/uL (1.8-6.4); PLATELET COUNT 202 K/uL (156-360); RBC DIS.WIDTH-CV 17.8 % (11.8-14.6); RBC DIS.WIDTH-SD 48.6 % (39-53); RED BLOOD COUNT 3.45 M/uL (4.00-5.50); WHITE BLOOD COUNT 11.7 K/uL (4.1-10.2)
[2017-04-21 04:41] LABS: CHLORIDE 97 mEq/L (99-109); POTASSIUM 3.9 mEq/L (3.7-5.4); SODIUM 137 mEq/L (136-147)
[2017-04-21 04:42] LABS: MAGNESIUM 1.6 mg/dL (1.3-2.7)
[2017-04-21 04:43] LABS: GLUCOSE 163 mg/dL (70-99)
[2017-04-21 04:44] LABS: ANION GAP 13 MEQ/L (2-14)
[2017-04-21 04:44] LABS: BASE EXCESS 7.1 mEq/L (-3 to +3); BICARBONATE 34.3 mEq/L (22-26); CARBOXY HGB 1.9 % (0-5); COMMENTS - BLOOD GASES C+; DEVICE 980; FI02 100 %; MECHANICAL RATE 14 resp/min; METHEMOGLOBIN 1.3 % (0-1.5); MODE AC; PCO2 65 mm Hg (35-45); PO2 138 mm Hg (80-100); SITE RR; TIDAL VOLUME 410 ML; TOTAL RESP RATE 18 resp/min; pH 7.33 (7.35-7.45)
[2017-04-21 04:45] LABS: PEEP 15 CM/H20
[2017-04-21 04:47] LABS: GFR ESTIMATE (CALCULATED) > 59 mL/min/
[2017-04-21 04:48] LABS: UREA NITROGEN (BUN) 34 mg/dL (9-23)
[2017-04-21 06:16] LABS: POINT-OF-CARE METER ID UU13113803
[2017-04-21 11:43] LABS: POINT-OF-CARE METER ID UU13113803
[2017-04-21 17:10] LABS: POINT-OF-CARE METER ID UU13113803
[2017-04-22] VITALS (24 sets, daily range): BP systolic 107–151; BP diastolic 64–89
[2017-04-22 00:52] LABS: POINT-OF-CARE METER ID UU13113803
[2017-04-22 04:46] LABS: HEMATOCRIT 26.3 % (38.0-50.0); MCH 24.6 PG (29.0-34.0); MCHC 32.7 G/DL (30.0-36.0); MCV 75.4 FL (86-99); MEAN PLAT.VOLUME 9.7 uM^3 (9.0-12.4); PLATELET COUNT 224 K/uL (156-360); RBC DIS.WIDTH-CV 18.1 % (11.8-14.6); RBC DIS.WIDTH-SD 49.2 % (39-53); RED BLOOD COUNT 3.49 M/uL (4.00-5.50); WHITE BLOOD COUNT 10.4 K/uL (4.1-10.2)
[2017-04-22 04:55] LABS: CHLORIDE 99 mEq/L (99-109); POTASSIUM 3.9 mEq/L (3.7-5.4); SODIUM 139 mEq/L (136-147)
[2017-04-22 04:56] LABS: MAGNESIUM 1.7 mg/dL (1.3-2.7)
[2017-04-22 04:57] LABS: GLUCOSE 154 mg/dL (70-99)
[2017-04-22 04:59] LABS: ANION GAP 13 MEQ/L (2-14)
[2017-04-22 05:01] LABS: GFR ESTIMATE (CALCULATED) > 59 mL/min/
[2017-04-22 05:02] LABS: UREA NITROGEN (BUN) 46 mg/dL (9-23)
[2017-04-22 05:10] LABS: POINT-OF-CARE METER ID UU14208751
[2017-04-22 05:32] LABS: ABS NEUTROPHIL COUNT 9.4; BASOPHILS 0.9 %; EOSINOPHIL ABS CT 0.3; EOSINOPHILS 2.7 % (0-5.0); HEMATOLOGY COMMENT 1 SN; LYMPHOCYTES 4.5 % (15.0-45.0); PLAT.SUFFICIENCY ADEQUATE; SEG.NEUTROPHILS 90.1 % (46.0-76.0)
[2017-04-22 11:29] LABS: BASE EXCESS 7.2 mEq/L (-3 to +3); BICARBONATE 32.5 mEq/L (22-26); CARBOXY HGB 1.9 % (0-5); COMMENTS - BLOOD GASES +C; METHEMOGLOBIN 1.4 % (0-1.5); PCO2 49 mm Hg (35-45); PO2 59 mm Hg (80-100); SITE RR +A; pH 7.43 (7.35-7.45)
[2017-04-22 11:30] LABS: DEVICE PB980; FI02 30 %; MODE TUBE COMP; PEEP 8 CM/H20; TOTAL RESP RATE 17 resp/min
[2017-04-22 11:58] LABS: POINT-OF-CARE METER ID UU14208751
[2017-04-23] VITALS (21 sets, daily range): BP systolic 104–148; BP diastolic 62–83
[2017-04-23 01:06] LABS: POINT-OF-CARE METER ID UU14208751
[2017-04-23 02:03] LABS: POINT-OF-CARE METER ID UU14208751
[2017-04-23 05:53] LABS: HEMATOCRIT 28.6 % (38.0-50.0); MCH 24.8 PG (29.0-34.0); MCHC 32.5 G/DL (30.0-36.0); MCV 76.3 FL (86-99); MEAN PLAT.VOLUME 9.9 uM^3 (9.0-12.4); PLATELET COUNT 235 K/uL (156-360); RBC DIS.WIDTH-CV 18.2 % (11.8-14.6); RBC DIS.WIDTH-SD 50.4 % (39-53); RED BLOOD COUNT 3.75 M/uL (4.00-5.50); WHITE BLOOD COUNT 10.1 K/uL (4.1-10.2)
[2017-04-23 05:57] LABS: POINT-OF-CARE METER ID UU14208751
[2017-04-23 06:19] LABS: EOSINOPHIL (%) 5.1 % (0-5); EOSINOPHIL COUNT 0.5 K/uL (0-0.3); IMMATURE GRANULOCYTE (%) 0.8 % (0.0-0.7); IMMATURE GRANULOCYTE COUNT 0.1 K/uL; INSTRUMENT ABS NEUTROPHIL CT 8.3 K/uL; LYMPHOCYTE COUNT 0.6 K/uL (1.0-2.8); MONOCYTE COUNT 0.6 K/uL (0-0.8); NEUTROPHIL (%) 81.8 % (45-76); NEUTROPHIL COUNT 8.3 K/uL (1.8-6.4)
[2017-04-23 06:32] LABS: ANION GAP 10 MEQ/L (2-14); GFR ESTIMATE (CALCULATED) > 59 mL/min/; MAGNESIUM 1.7 mg/dl (1.3-2.7); POTASSIUM 3.6 MEQ/L (3.7-5.4); SAMPLE HEMOLYSIS CHECK 0; SAMPLE ICTERIC CHECK 0; SAMPLE LIPEMIA CHECK 0; SODIUM 142 MEQ/L (136-147); UREA NITROGEN (BUN) 44 mg/dL (9-23)
[2017-04-23 06:41] LABS: CHLORIDE 106 MEQ/L (99-109); GLUCOSE 109 mg/dL (70-99)
[2017-04-23 12:51] LABS: POINT-OF-CARE METER ID UU14208751
[2017-04-23 22:10] LABS: ANION GAP 14 MEQ/L (2-14); CHLORIDE 103 MEQ/L (99-109); GFR ESTIMATE (CALCULATED) > 59 mL/min/; GLUCOSE 66 mg/dL (70-99); MAGNESIUM 2.1 mg/dl (1.3-2.7); POTASSIUM 3.6 MEQ/L (3.7-5.4); SAMPLE HEMOLYSIS CHECK 0; SAMPLE ICTERIC CHECK 0; SAMPLE LIPEMIA CHECK 0; SODIUM 143 MEQ/L (136-147); UREA NITROGEN (BUN) 44 mg/dL (9-23)
[2017-04-24] VITALS (24 sets, daily range): BP systolic 124–147; BP diastolic 67–96
[2017-04-24 00:20] LABS: POINT-OF-CARE METER ID UU14208751
[2017-04-24 05:22] LABS: HEMATOCRIT 28.8 % (38.0-50.0); MCH 25.4 PG (29.0-34.0); MCHC 33.3 G/DL (30.0-36.0); MCV 76.2 FL (86-99); MEAN PLAT.VOLUME 10.1 uM^3 (9.0-12.4); PLATELET COUNT 240 K/uL (156-360); RBC DIS.WIDTH-CV 18.2 % (11.8-14.6); RBC DIS.WIDTH-SD 50.2 % (39-53); RED BLOOD COUNT 3.78 M/uL (4.00-5.50)
[2017-04-24 05:44] LABS: ANION GAP 11 MEQ/L (2-14); CHLORIDE 103 MEQ/L (99-109); GFR ESTIMATE (CALCULATED) > 59 mL/min/; MAGNESIUM 1.9 mg/dl (1.3-2.7); POTASSIUM 3.7 MEQ/L (3.7-5.4); SAMPLE HEMOLYSIS CHECK 0; SAMPLE ICTERIC CHECK 0; SAMPLE LIPEMIA CHECK 0; SODIUM 142 MEQ/L (136-147); UREA NITROGEN (BUN) 44 mg/dL (9-23)
[2017-04-24 05:45] LABS: GLUCOSE 96 mg/dL (70-99)
[2017-04-24 07:41] LABS: EOSINOPHIL COUNT 0.5 K/uL (0-0.3); IMMATURE GRANULOCYTE (%) 0.8 % (0.0-0.7); IMMATURE GRANULOCYTE COUNT 0.1 K/uL; LYMPHOCYTE COUNT 0.8 K/uL (1.0-2.8); MONOCYTE (%) 6.2 % (3-12); MONOCYTE COUNT 0.6 K/uL (0-0.8); NEUTROPHIL (%) 80.2 % (45-76)
[2017-04-24 13:10] LABS: POINT-OF-CARE METER ID UU13113748
[2017-04-24 18:21] LABS: POINT-OF-CARE METER ID UU13113748
[2017-04-25] VITALS (24 sets, daily range): BP systolic 127–148; BP diastolic 73–91
[2017-04-25 00:18] LABS: POINT-OF-CARE METER ID UU13113748
[2017-04-25 05:10] LABS: CHLORIDE 104 mEq/L (99-109); EOSINOPHIL COUNT 0.2 K/uL (0-0.3); HEMATOCRIT 28.9 % (38.0-50.0); IMMATURE GRANULOCYTE (%) 0.7 % (0.0-0.7); IMMATURE GRANULOCYTE COUNT 0.1 K/uL; INSTRUMENT ABS NEUTROPHIL CT 7.3 K/uL; LYMPHOCYTE COUNT 0.4 K/uL (1.0-2.8); MCH 24.7 PG (29.0-34.0); MCHC 33.2 G/DL (30.0-36.0); MCV 74.5 FL (86-99); MEAN PLAT.VOLUME 10.4 uM^3 (9.0-12.4); MONOCYTE (%) 1.1 % (3-12); MONOCYTE COUNT 0.1 K/uL (0-0.8); NEUTROPHIL (%) 91.1 % (45-76); NEUTROPHIL COUNT 7.3 K/uL (1.8-6.4); PLATELET COUNT 217 K/uL (156-360); POTASSIUM 4.1 mEq/L (3.7-5.4); RBC DIS.WIDTH-CV 18.1 % (11.8-14.6); RBC DIS.WIDTH-SD 48.8 % (39-53); RED BLOOD COUNT 3.88 M/uL (4.00-5.50); SODIUM 142 mEq/L (136-147); WHITE BLOOD COUNT 8.1 K/uL (4.1-10.2)
[2017-04-25 05:11] LABS: MAGNESIUM 1.7 mg/dL (1.3-2.7)
[2017-04-25 05:12] LABS: GLUCOSE 156 mg/dL (70-99)
[2017-04-25 05:14] LABS: ANION GAP 13 MEQ/L (2-14)
[2017-04-25 05:16] LABS: GFR ESTIMATE (CALCULATED) > 59 mL/min/
[2017-04-25 05:17] LABS: UREA NITROGEN (BUN) 53 mg/dL (9-23)
[2017-04-25 11:36] LABS: POINT-OF-CARE METER ID UU14208751
[2017-04-25 17:51] LABS: POINT-OF-CARE METER ID UU13113731
[2017-04-26] VITALS (25 sets, daily range): BP systolic 109–166; BP diastolic 71–101
[2017-04-26 01:32] LABS: POINT-OF-CARE METER ID UU13113731
[2017-04-26 05:11] LABS: CHLORIDE 104 mEq/L (99-109); POTASSIUM 3.8 mEq/L (3.7-5.4); SODIUM 143 mEq/L (136-147)
[2017-04-26 05:12] LABS: MAGNESIUM 2.1 mg/dL (1.3-2.7)
[2017-04-26 05:14] LABS: ANION GAP 11 MEQ/L (2-14)
[2017-04-26 05:17] LABS: GFR ESTIMATE (CALCULATED) > 59 mL/min/
[2017-04-26 05:18] LABS: GLUCOSE 282 mg/dL (70-99); UREA NITROGEN (BUN) 67 mg/dL (9-23)
[2017-04-26 05:31] LABS: HEMATOCRIT 30.4 % (38.0-50.0); MCH 24.6 PG (29.0-34.0); MCHC 32.9 G/DL (30.0-36.0); MCV 74.7 FL (86-99); RBC DIS.WIDTH-CV 18.4 % (11.8-14.6); RBC DIS.WIDTH-SD 49.1 % (39-53); RED BLOOD COUNT 4.07 M/uL (4.00-5.50); WHITE BLOOD COUNT 11.2 K/uL (4.1-10.2)
[2017-04-26 06:02] LABS: POINT-OF-CARE METER ID UU14208751
[2017-04-26 07:21] LABS: ANISOCYTOSIS 2+; EOSINOPHIL (%) 0.1 % (0-5); IMMATURE GRANULOCYTE (%) 0.7 % (0.0-0.7); IMMATURE GRANULOCYTE COUNT 0.1 K/uL; INSTRUMENT ABS NEUTROPHIL CT 9.9 K/uL; LYMPHOCYTE COUNT 0.6 K/uL (1.0-2.8); MACROCYTES 1+; MICROCYTOSIS 1+; MONOCYTE (%) 5.1 % (3-12); MONOCYTE COUNT 0.6 K/uL (0-0.8); NEUTROPHIL (%) 88.8 % (45-76); NEUTROPHIL COUNT 9.9 K/uL (1.8-6.4); PLAT.SUFFICIENCY ADEQUATE; PLATELET CLUMPS PRESENT - PLATELET COUNT APPEARS ADQ.; PLATELET COUNT UNABLE TO REPORT K/uL (156-360); TARGET CELLS 1+; TEAR DROP CELLS 1+
[2017-04-26 12:25] LABS: BASE EXCESS 5.3 mEq/L (-3 to +3); BICARBONATE 30.5 mEq/L (22-26); CARBOXY HGB 1.5 % (0-5); METHEMOGLOBIN 1.5 % (0-1.5); PCO2 47 mm Hg (35-45); PO2 53 mm Hg (80-100); pH 7.42 (7.35-7.45)
[2017-04-26 12:26] LABS: COMMENTS - BLOOD GASES A+C+; DEVICE 980; FI02 60 %; MODE NIV; PEEP 8 CM/H20; PRES. SUPPORT 10 CM/H2O; SITE RR; TIDAL VOLUME 442 ML; TOTAL RESP RATE 35 resp/min
[2017-04-26 12:30] LABS: POINT-OF-CARE METER ID UU14208751
[2017-04-26 15:59] LABS: BASE EXCESS 6.1 mEq/L (-3 to +3); BICARBONATE 29.5 mEq/L (22-26); CARBOXY HGB 1.2 % (0-5); DEVICE VENT; METHEMOGLOBIN 1.8 % (0-1.5); PCO2 37 mm Hg (35-45); PO2 365 mm Hg (80-100); SITE RB; pH 7.51 (7.35-7.45)
[2017-04-26 16:00] LABS: FI02 100 %; MECHANICAL RATE 14 resp/min; MODE A/C; PEEP 10 CM/H20; TIDAL VOLUME 530 ML; TOTAL RESP RATE 16 resp/min
[2017-04-26 17:55] LABS: POINT-OF-CARE METER ID UU14208751
[2017-04-26 23:58] LABS: POINT-OF-CARE METER ID UU14208751
[2017-04-27] VITALS (18 sets, daily range): BP systolic 150–161; BP diastolic 89–102
[2017-04-27 05:56] LABS: POINT-OF-CARE METER ID UU14174217
[2017-04-27 06:19] LABS: ANION GAP 13 MEQ/L (2-14); CHLORIDE 105 MEQ/L (99-109); GFR ESTIMATE (CALCULATED) > 59 mL/min/; GLUCOSE 229 mg/dL (70-99); MAGNESIUM 2.1 mg/dl (1.3-2.7); POTASSIUM 3.5 MEQ/L (3.7-5.4); SAMPLE HEMOLYSIS CHECK 0; SAMPLE ICTERIC CHECK 0; SAMPLE LIPEMIA CHECK 0; SODIUM 145 MEQ/L (136-147); UREA NITROGEN (BUN) 56 mg/dL (9-23)
[2017-04-27 06:35] LABS: EOSINOPHIL (%) 0 % (0-5); HEMATOCRIT 29.9 % (38.0-50.0); IMMATURE GRANULOCYTE (%) 0.9 % (0.0-0.7); IMMATURE GRANULOCYTE COUNT 0.1 K/uL; LYMPHOCYTE COUNT 0.6 K/uL (1.0-2.8); MCH 24.4 PG (29.0-34.0); MCHC 33.1 G/DL (30.0-36.0); MCV 73.8 FL (86-99); MEAN PLAT.VOLUME 10.5 uM^3 (9.0-12.4); MONOCYTE (%) 5.1 % (3-12); MONOCYTE COUNT 0.5 K/uL (0-0.8); NEUTROPHIL (%) 88.3 % (45-76); RBC DIS.WIDTH-CV 18.4 % (11.8-14.6); RBC DIS.WIDTH-SD 49.3 % (39-53); RED BLOOD COUNT 4.05 M/uL (4.00-5.50); WHITE BLOOD COUNT 10.2 K/uL (4.1-10.2)
[2017-04-27 07:19] LABS: PLATELET COUNT 201 K/uL (156-360)
[2017-04-27 11:38] LABS: POINT-OF-CARE METER ID UU14174217
[2017-04-27 18:20] LABS: POINT-OF-CARE METER ID UU14174217
[2017-04-28] VITALS (24 sets, daily range): BP systolic 102–166; BP diastolic 64–108
[2017-04-28 00:26] LABS: POINT-OF-CARE METER ID UU14174217
[2017-04-28 05:44] LABS: EOSINOPHIL (%) 0 % (0-5); HEMATOCRIT 31.6 % (38.0-50.0); IMMATURE GRANULOCYTE (%) 0.8 % (0.0-0.7); IMMATURE GRANULOCYTE COUNT 0.1 K/uL; INSTRUMENT ABS NEUTROPHIL CT 9.9 K/uL; LYMPHOCYTE COUNT 0.6 K/uL (1.0-2.8); MCHC 33.5 G/DL (30.0-36.0); MCV 77.5 FL (86-99); MEAN PLAT.VOLUME 11.2 uM^3 (9.0-12.4); MONOCYTE (%) 5.1 % (3-12); MONOCYTE COUNT 0.6 K/uL (0-0.8); NEUTROPHIL (%) 88.4 % (45-76); NEUTROPHIL COUNT 9.9 K/uL (1.8-6.4); PLATELET COUNT 194 K/uL (156-360); RBC DIS.WIDTH-CV 18.9 % (11.8-14.6); RBC DIS.WIDTH-SD 52.2 % (39-53); RED BLOOD COUNT 4.08 M/uL (4.00-5.50); WHITE BLOOD COUNT 11.2 K/uL (4.1-10.2)
[2017-04-28 05:44] LABS: POINT-OF-CARE METER ID UU14174217
[2017-04-28 07:00] LABS: ANION GAP 9 MEQ/L (2-14); CHLORIDE 109 MEQ/L (99-109); GFR ESTIMATE (CALCULATED) > 59 mL/min/; GLUCOSE 304 mg/dL (70-99); POTASSIUM 4.2 MEQ/L (3.7-5.4); SAMPLE HEMOLYSIS CHECK 0; SAMPLE ICTERIC CHECK 0; SAMPLE LIPEMIA CHECK 0; SODIUM 147 MEQ/L (136-147); UREA NITROGEN (BUN) 55 mg/dL (9-23)
[2017-04-28 12:23] LABS: POINT-OF-CARE METER ID UU14174217
[2017-04-28 13:42] LABS: BASE EXCESS 7.1 mEq/L (-3 to +3); BICARBONATE 31.3 mEq/L (22-26); METHEMOGLOBIN 1.6 % (0-1.5); pH 7.48 (7.35-7.45)
[2017-04-28 13:43] LABS: COMMENTS - BLOOD GASES A+C+; DEVICE 840 PB; FI02 30 %; PCO2 42 mm Hg (35-45); PO2 61 mm Hg (80-100); SITE LR
[2017-04-28 13:44] LABS: MODE SPONT; PEEP 5 CM/H20; PRES. SUPPORT 7 CM/H2O; TOTAL RESP RATE 22 resp/min
[2017-04-28 18:06] LABS: POINT-OF-CARE METER ID UU14162636
[2017-04-29] VITALS (24 sets, daily range): BP systolic 126–164; BP diastolic 76–103
[2017-04-29 01:55] LABS: POINT-OF-CARE METER ID UU14174217
[2017-04-29 05:14] LABS: EOSINOPHIL (%) 0.1 % (0-5); HEMATOCRIT 31.8 % (38.0-50.0); IMMATURE GRANULOCYTE (%) 0.8 % (0.0-0.7); IMMATURE GRANULOCYTE COUNT 0.1 K/uL; INSTRUMENT ABS NEUTROPHIL CT 10.1 K/uL; LYMPHOCYTE COUNT 0.7 K/uL (1.0-2.8); MCH 25.8 PG (29.0-34.0); MCHC 33.3 G/DL (30.0-36.0); MCV 77.4 FL (86-99); MEAN PLAT.VOLUME 11.5 uM^3 (9.0-12.4); MONOCYTE (%) 4.9 % (3-12); MONOCYTE COUNT 0.6 K/uL (0-0.8); NEUTROPHIL (%) 88.4 % (45-76); NEUTROPHIL COUNT 10.1 K/uL (1.8-6.4); PLATELET COUNT 212 K/uL (156-360); RBC DIS.WIDTH-SD 52.5 % (39-53); RED BLOOD COUNT 4.11 M/uL (4.00-5.50); WHITE BLOOD COUNT 11.4 K/uL (4.1-10.2)
[2017-04-29 05:45] LABS: ANION GAP 6 MEQ/L (2-14); CHLORIDE 114 MEQ/L (99-109); GFR ESTIMATE (CALCULATED) > 59 mL/min/; GLUCOSE 206 mg/dL (70-99); MAGNESIUM 1.8 mg/dl (1.3-2.7); SAMPLE HEMOLYSIS CHECK 0; SAMPLE ICTERIC CHECK 0; SAMPLE LIPEMIA CHECK 0; SODIUM 151 MEQ/L (136-147); UREA NITROGEN (BUN) 45 mg/dL (9-23)
[2017-04-29 06:47] LABS: POINT-OF-CARE METER ID UU13113748
[2017-04-29 17:58] LABS: ADD MIUA? YES; BILIRUBIN NEGATIVE; BLOOD SMALL; COLOR YELLOW ((YELLOW)); GLUCOSE (STRIP) NEGATIVE; KETONES NEGATIVE; LEUKOCYTES NEGATIVE; NITRITE NEGATIVE; PROTEIN (STRIP) 100; SPECIFIC GRAVITY 1.014 (1.000-1.030); UROBILINOGEN 0.2 MG/DL (0.2-1.0)
[2017-04-29 18:03] LABS: BACTERIA RARE /HPF; EPITHELIAL CELLS RARE /HPF; HYALINE CASTS 0-5 /LPF; MUCUS NONE SEEN /LPF; RED BLOOD CELLS 0-5 /HPF (0-5); WHITE BLOOD CELLS 0-5 /HPF (0-5)
[2017-04-30] VITALS (23 sets, daily range): BP systolic 114–150; BP diastolic 63–95
[2017-04-30 00:41] LABS: POINT-OF-CARE METER ID UU14208751
[2017-04-30 05:46] LABS: POINT-OF-CARE METER ID UU14208751
[2017-04-30 06:17] LABS: EOSINOPHIL (%) 2.8 % (0-5); EOSINOPHIL COUNT 0.3 K/uL (0-0.3); HEMATOCRIT 34.6 % (38.0-50.0); IMMATURE GRANULOCYTE (%) 0.6 % (0.0-0.7); IMMATURE GRANULOCYTE COUNT 0.1 K/uL; INSTRUMENT ABS NEUTROPHIL CT 8.1 K/uL; LYMPHOCYTE COUNT 1.5 K/uL (1.0-2.8); MCH 25.3 PG (29.0-34.0); MCHC 32.4 G/DL (30.0-36.0); MCV 78.3 FL (86-99); MEAN PLAT.VOLUME 11.2 uM^3 (9.0-12.4); MONOCYTE (%) 8.7 % (3-12); NEUTROPHIL (%) 74.4 % (45-76); NEUTROPHIL COUNT 8.1 K/uL (1.8-6.4); PLATELET COUNT 198 K/uL (156-360); RBC DIS.WIDTH-CV 19.5 % (11.8-14.6); RBC DIS.WIDTH-SD 53.7 % (39-53); RED BLOOD COUNT 4.42 M/uL (4.00-5.50); WHITE BLOOD COUNT 10.9 K/uL (4.1-10.2)
[2017-04-30 07:32] LABS: ANION GAP 13 MEQ/L (2-14); CHLORIDE 117 MEQ/L (99-109); GFR ESTIMATE (CALCULATED) > 59 mL/min/; GLUCOSE 155 mg/dL (70-99); MAGNESIUM 1.8 mg/dl (1.3-2.7); POTASSIUM 4.2 MEQ/L (3.7-5.4); SAMPLE HEMOLYSIS CHECK 1; SAMPLE ICTERIC CHECK 0; SAMPLE LIPEMIA CHECK 0; SODIUM 154 MEQ/L (136-147); UREA NITROGEN (BUN) 36 mg/dL (9-23)
[2017-04-30 17:13] LABS: POINT-OF-CARE METER ID UU14208751
[2017-04-30 23:37] LABS: POINT-OF-CARE METER ID UU14208751
[2017-05-01] VITALS (18 sets, daily range): BP systolic 107–140; BP diastolic 58–82
[2017-05-01 05:36] LABS: EOSINOPHIL (%) 5.1 % (0-5); EOSINOPHIL COUNT 0.6 K/uL (0-0.3); HEMATOCRIT 33.4 % (38.0-50.0); IMMATURE GRANULOCYTE (%) 0.5 % (0.0-0.7); IMMATURE GRANULOCYTE COUNT 0.1 K/uL; INSTRUMENT ABS NEUTROPHIL CT 8.3 K/uL; LYMPHOCYTE COUNT 1.9 K/uL (1.0-2.8); MCH 24.7 PG (29.0-34.0); MCHC 31.1 G/DL (30.0-36.0); MCV 79.3 FL (86-99); MEAN PLAT.VOLUME 10.6 uM^3 (9.0-12.4); MONOCYTE (%) 8.4 % (3-12); NEUTROPHIL (%) 69.6 % (45-76); NEUTROPHIL COUNT 8.3 K/uL (1.8-6.4); PLATELET COUNT 182 K/uL (156-360); RBC DIS.WIDTH-CV 19.3 % (11.8-14.6); RBC DIS.WIDTH-SD 54.3 % (39-53); RED BLOOD COUNT 4.21 M/uL (4.00-5.50); WHITE BLOOD COUNT 11.9 K/uL (4.1-10.2)
[2017-05-01 06:03] LABS: POINT-OF-CARE METER ID UU14162636
[2017-05-01 06:07] LABS: ANION GAP 6 MEQ/L (2-14); CHLORIDE 121 MEQ/L (99-109); GFR ESTIMATE (CALCULATED) > 59 mL/min/; GLUCOSE 156 mg/dL (70-99); MAGNESIUM 1.8 mg/dl (1.3-2.7); POTASSIUM 3.7 MEQ/L (3.7-5.4); SAMPLE HEMOLYSIS CHECK 0; SAMPLE ICTERIC CHECK 0; SAMPLE LIPEMIA CHECK 0; SODIUM 153 MEQ/L (136-147); UREA NITROGEN (BUN) 30 mg/dL (9-23)
[2017-05-01 08:39] LABS: POINT-OF-CARE METER ID UU14162636
[2017-05-01 15:34] LABS: POINT-OF-CARE METER ID UU14162636
[2017-05-01 16:22] LABS: GLUCOSE 199 mg/dL (70-99)
[2017-05-01 16:57] LABS: POINT-OF-CARE METER ID UU14162636
[2017-05-01 18:07] LABS: POINT-OF-CARE METER ID UU14162636
[2017-05-01 21:34] LABS: POINT-OF-CARE METER ID UU14162636
[2017-05-01 23:28] LABS: POINT-OF-CARE METER ID UU14162636
[2017-05-02] VITALS (14 sets, daily range): BP systolic 118–141; BP diastolic 68–85
[2017-05-02 06:05] LABS: POINT-OF-CARE METER ID UU14162636
[2017-05-02 06:09] LABS: EOSINOPHIL (%) 7.5 % (0-5); EOSINOPHIL COUNT 0.9 K/uL (0-0.3); HEMATOCRIT 31.2 % (38.0-50.0); IMMATURE GRANULOCYTE (%) 0.9 % (0.0-0.7); IMMATURE GRANULOCYTE COUNT 0.1 K/uL; LYMPHOCYTE COUNT 1.6 K/uL (1.0-2.8); MCH 24.7 PG (29.0-34.0); MCHC 31.4 G/DL (30.0-36.0); MCV 78.6 FL (86-99); MEAN PLAT.VOLUME 11.2 uM^3 (9.0-12.4); MONOCYTE (%) 7.3 % (3-12); MONOCYTE COUNT 0.9 K/uL (0-0.8); NEUTROPHIL (%) 71.4 % (45-76); PLATELET COUNT 209 K/uL (156-360); RBC DIS.WIDTH-CV 19.3 % (11.8-14.6); RBC DIS.WIDTH-SD 54.4 % (39-53); RED BLOOD COUNT 3.97 M/uL (4.00-5.50); WHITE BLOOD COUNT 12.6 K/uL (4.1-10.2)
[2017-05-02 06:39] LABS: ANION GAP 7 MEQ/L (2-14); CHLORIDE 115 MEQ/L (99-109); GFR ESTIMATE (CALCULATED) > 59 mL/min/; MAGNESIUM 1.7 mg/dl (1.3-2.7); POTASSIUM 3.9 MEQ/L (3.7-5.4); SAMPLE HEMOLYSIS CHECK 0; SAMPLE ICTERIC CHECK 0; SAMPLE LIPEMIA CHECK 0; SODIUM 148 MEQ/L (136-147); UREA NITROGEN (BUN) 22 mg/dL (9-23)
[2017-05-02 06:47] LABS: GLUCOSE 92 mg/dL (70-99)
[2017-05-02 12:30] LABS: POINT-OF-CARE METER ID UU14162636
[2017-05-02 18:24] LABS: POINT-OF-CARE METER ID UU14174217
[2017-05-03] VITALS (8 sets, daily range): BP systolic 127–152; BP diastolic 63–95
[2017-05-03 06:59] LABS: EOSINOPHIL (%) 5.4 % (0-5); EOSINOPHIL COUNT 0.5 K/uL (0-0.3); HEMATOCRIT 30.8 % (38.0-50.0); IMMATURE GRANULOCYTE (%) 0.7 % (0.0-0.7); IMMATURE GRANULOCYTE COUNT 0.1 K/uL; INSTRUMENT ABS NEUTROPHIL CT 7.3 K/uL; LYMPHOCYTE COUNT 1.1 K/uL (1.0-2.8); MCH 24.8 PG (29.0-34.0); MCHC 31.5 G/DL (30.0-36.0); MCV 78.8 FL (86-99); MEAN PLAT.VOLUME 10.9 uM^3 (9.0-12.4); MONOCYTE COUNT 0.9 K/uL (0-0.8); NEUTROPHIL (%) 73.9 % (45-76); NEUTROPHIL COUNT 7.3 K/uL (1.8-6.4); PLATELET COUNT 247 K/uL (156-360); RBC DIS.WIDTH-CV 19.5 % (11.8-14.6); RBC DIS.WIDTH-SD 54.6 % (39-53); RED BLOOD COUNT 3.91 M/uL (4.00-5.50); WHITE BLOOD COUNT 9.9 K/uL (4.1-10.2)
[2017-05-03 07:17] LABS: ANION GAP 7 MEQ/L (2-14); CHLORIDE 109 MEQ/L (99-109); GFR ESTIMATE (CALCULATED) > 59 mL/min/; GLUCOSE 133 mg/dL (70-99); MAGNESIUM 1.9 mg/dl (1.3-2.7); POTASSIUM 4.2 MEQ/L (3.7-5.4); SAMPLE HEMOLYSIS CHECK 0; SAMPLE ICTERIC CHECK 0; SAMPLE LIPEMIA CHECK 0; SODIUM 141 MEQ/L (136-147); UREA NITROGEN (BUN) 18 mg/dL (9-23)
[2017-05-03 12:44] LABS: C DIFF TOXIN NEGATIVE (NEGATIVE); PROBE CHECK PASS; SPECIMEN PROCESSING CONTROL PASS
[2017-05-03 21:38] LABS: POINT-OF-CARE METER ID UU14188577
[2017-05-04 04:05] VITALS: BP 137/89
[2017-05-04 08:19] VITALS: BP 144/85
[2017-05-04 08:29] LABS: EOSINOPHIL (%) 4.6 % (0-5); EOSINOPHIL COUNT 0.3 K/uL (0-0.3); HEMATOCRIT 30.1 % (38.0-50.0); IMMATURE GRANULOCYTE (%) 0.6 % (0.0-0.7); INSTRUMENT ABS NEUTROPHIL CT 4.5 K/uL; MCH 25.5 PG (29.0-34.0); MCHC 32.6 G/DL (30.0-36.0); MCV 78.4 FL (86-99); MEAN PLAT.VOLUME 11.1 uM^3 (9.0-12.4); MONOCYTE (%) 12.1 % (3-12); MONOCYTE COUNT 0.8 K/uL (0-0.8); NEUTROPHIL COUNT 4.5 K/uL (1.8-6.4); PLATELET COUNT 232 K/uL (156-360); RBC DIS.WIDTH-CV 19.5 % (11.8-14.6); RBC DIS.WIDTH-SD 54.3 % (39-53); RED BLOOD COUNT 3.84 M/uL (4.00-5.50); WHITE BLOOD COUNT 6.7 K/uL (4.1-10.2)
[2017-05-04 08:58] LABS: ANION GAP 8 MEQ/L (2-14); CHLORIDE 107 MEQ/L (99-109); GFR ESTIMATE (CALCULATED) > 59 mL/min/; GLUCOSE 114 mg/dL (70-99); MAGNESIUM 1.7 mg/dl (1.3-2.7); POTASSIUM 4.2 MEQ/L (3.7-5.4); SAMPLE HEMOLYSIS CHECK 0; SAMPLE ICTERIC CHECK 0; SAMPLE LIPEMIA CHECK 0; SODIUM 142 MEQ/L (136-147); UREA NITROGEN (BUN) 14 mg/dL (9-23)
[2017-05-04 11:08] VITALS: BP 139/76
[2017-05-04 12:00] LABS: POINT-OF-CARE METER ID UU14117124
[2017-05-04] MEDS ORDERED: DUONEB 2.5-0.5 M3 ML AEROSOL (14:26)
[2017-05-04] MEDS ORDERED: TAMSULOSIN HCL0.4 MG PO (14:26)
[2017-05-04] MEDS ORDERED: LASIX40 MG PO (14:26)
[2017-05-04] MEDS ORDERED: OXYCODONE HCL10 MG PO (14:48)
== END 2017-05-04 15:02 | disposition home or self-care (01) | DRG 208 ==
LOC: EME 18:27 → 3EAST 23:14 → EDOF 23:14 → 5EAST 23:14 → 4WEST 04-19 13:55 → ENRESERV 05-02 14:57 → 3EAST 05-02 19:34
PROVIDERS: Hospitalist; Internal Medicine; Internal Medicine Cardiovascular Disease; Internal Medicine Critical Care Medicine; Internal Medicine Infectious Disease; Internal Medicine Nephrology; Internal Medicine Pulmonary Disease; Obstetrics & Gynecology; Physician Assistant Medical; Radiology Diagnostic Radiology
DX: J15.9 Unspecified bacterial pneumonia (principal); E87.3 Alkalosis; I47.2 Ventricular tachycardia; I50.43 Acute on chronic combined systolic (congestive) and diastolic (congestive) heart failure; E83.42 Hypomagnesemia; I50.23 Acute on chronic systolic (congestive) heart failure; I11.0 Hypertensive heart disease with heart failure; E87.0 Hyperosmolality and hypernatremia; E83.39 Other disorders of phosphorus metabolism; J96.01 Acute respiratory failure with hypoxia; E87.1 Hypo-osmolality and hyponatremia; E11.65 Type 2 diabetes mellitus with hyperglycemia; I10 Essential (primary) hypertension; E78.5 Hyperlipidemia, unspecified; Z79.2 Long term (current) use of antibiotics; E87.6 Hypokalemia; I25.5 Ischemic cardiomyopathy; R18.8 Other ascites; E11.649 Type 2 diabetes mellitus with hypoglycemia without coma; R33.9 Retention of urine, unspecified; I25.10 Atherosclerotic heart disease of native coronary artery without angina pectoris; K21.9 Gastro-esophageal reflux disease without esophagitis; J98.11 Atelectasis; W06.XXXA Fall from bed, initial encounter; F17.200 Nicotine dependence, unspecified, uncomplicated; D64.9 Anemia, unspecified; F32.9 Major depressive disorder, single episode, unspecified; Y92.239 Unspecified place in hospital as the place of occurrence of the external cause; S39.92XA Unspecified injury of lower back, initial encounter; Z79.4 Long term (current) use of insulin; B96.89 Other specified bacterial agents as the cause of diseases classified elsewhere; Z89.511 Acquired absence of right leg below knee; E11.51 Type 2 diabetes mellitus with diabetic peripheral angiopathy without gangrene; M48.06 Spinal stenosis, lumbar region; Z89.512 Acquired absence of left leg below knee; Z79.82 Long term (current) use of aspirin; I25.2 Old myocardial infarction; Z91.19 Patient's noncompliance with other medical treatment and regimen; Z79.899 Other long term (current) drug therapy; Z91.14 Patient's other noncompliance with medication regimen; Z95.1 Presence of aortocoronary bypass graft; Z83.3 Family history of diabetes mellitus
CPT/HCPCS: 36415; 36600; 71010; 71020; 71250; 71275; 72131; 74176; 76942; 80048; 80048 91; 80053; 80061; 80076; 81003; 82550; 82550 91; 82553; 82570; 82803; 82945; 82947 91; 82948; 83036; 83605; 83615; 83615 91; 83735; 83880; 84100; 84145 90; 84155; 84156; 84157; 84484; 84999; 85025; 85025 91; 85027; 85610; 85730; 87040; 87070; 87075; 87077; 87077 90; 87086; 87106; 87116; 87177; 87186; 87205; 87206; 87449; 87493; 87641; 87801; 88108; 88305; 89051; 93005; 93306; 94002; 94003; 94640; 94640 76; 94660; 94667; 94668; 94760; 94799; 99202; 99281; 99285; G0103; J0295; J0330; J0456; J0696; J0770; J1630; J1644; J1815; J1885; J1940; J1956; J2185; J2250; J2270; J2704; J2920; J3010; J3243; J3475; J3480; J7040; J7042; J7050; J7608; S0028

== ENCOUNTER 2017-06-19 04:19 | Inpatient (IN) | payer OTHER ==
[~2017-06-19] VITALS: Ht 182.9 cm; Wt 74.6 kg
[~2017-06-19 04:19] MED LIST changes: +DUONEB 2.5-0.5 M3 ML AEROSOL; +NOVOLOG MI100 UNIT/2 SC; +TAMSULOSIN HCL0.4 MG PO; +ZOCOR20 MG PO; +ZOLOFT100 MG PO
[2017-06-19 04:46] LABS: HEMATOCRIT 33.6 % (38.0-50.0); MCH 25.8 PG (29.0-34.0); MCHC 32.7 G/DL (30.0-36.0); MCV 78.7 FL (86-99); PLATELET COUNT 242 K/uL (156-360); RBC DIS.WIDTH-CV 20.9 % (11.8-14.6); RBC DIS.WIDTH-SD 58.4 % (39-53); RED BLOOD COUNT 4.27 M/uL (4.00-5.50); WHITE BLOOD COUNT 9.8 K/uL (4.1-10.2)
[2017-06-19 04:51] LABS: EOSINOPHIL (%) 1.3 % (0-5); EOSINOPHIL COUNT 0.1 K/uL (0-0.3); IMMATURE GRANULOCYTE (%) 0.4 % (0.0-0.7); LYMPHOCYTE COUNT 0.8 K/uL (1.0-2.8); MONOCYTE (%) 7.9 % (3-12); MONOCYTE COUNT 0.8 K/uL (0-0.8)
[2017-06-19 04:54] LABS: POTASSIUM ND MEQ/L (3.7-5.4)
[2017-06-19 04:54] LABS: POINT-OF-CARE METER ID UU13113702
[2017-06-19 04:59] LABS: CHLORIDE 101 mEq/L (99-109); SODIUM 134 mEq/L (136-147)
[2017-06-19 05:01] LABS: GLUCOSE 182 mg/dL (70-99)
[2017-06-19 05:02] LABS: ANION GAP 14 MEQ/L (2-14)
[2017-06-19 05:05] LABS: GFR ESTIMATE (CALCULATED) > 59 mL/min/
[2017-06-19 05:06] LABS: TROP-I INTERPRETATION NEGATIVE; TROPONIN-I 0.05 ng/mL (0.0-0.30); UREA NITROGEN (BUN) 12 mg/dL (9-23)
[2017-06-19 05:39] LABS: POTASSIUM 3.9 mEq/L (3.7-5.4)
[2017-06-19 09:04] LABS: BASE EXCESS 4.1 mEq/L (-3 to +3); BICARBONATE 28.5 mEq/L (22-26); CARBOXY HGB 2.5 % (0-5); PCO2 41 mm Hg (35-45); pH 7.45 (7.35-7.45)
[2017-06-19 09:05] LABS: COMMENTS - BLOOD GASES A+C+; DEVICE HFNC; O2 FLOW 10 L/MIN; PO2 99 mm Hg (80-100); SITE LR; TOTAL RESP RATE 18 resp/min
[2017-06-19 11:00] LABS: TROP-I INTERPRETATION NEGATIVE; TROPONIN-I 0.05 ng/mL (0.0-0.30)
[2017-06-19 14:10] VITALS: BP 180/95
[2017-06-19 15:03] VITALS: BP 152/72
[2017-06-19 16:08] LABS: POINT-OF-CARE METER ID UU14174216
[2017-06-19 16:37] VITALS: BP 139/82
[2017-06-19 17:20] LABS: TROP-I INTERPRETATION NEGATIVE; TROPONIN-I 0.06 ng/mL (0.0-0.30)
[2017-06-19 19:35] VITALS: BP 153/92
[2017-06-19 21:22] LABS: POINT-OF-CARE METER ID UU14174216
[2017-06-19 23:00] VITALS: BP 147/88
[2017-06-20 05:12] VITALS: BP 135/80
[2017-06-20 05:54] LABS: ANION GAP 11 MEQ/L (2-14); CHLORIDE 96 MEQ/L (99-109); GFR ESTIMATE (CALCULATED) > 59 mL/min/; GLUCOSE 247 mg/dL (70-99); POTASSIUM 4.2 MEQ/L (3.7-5.4); SAMPLE HEMOLYSIS CHECK 0; SAMPLE ICTERIC CHECK 0; SAMPLE LIPEMIA CHECK 0; SODIUM 134 MEQ/L (136-147); UREA NITROGEN (BUN) 18 mg/dL (9-23)
[2017-06-20 07:43] LABS: POINT-OF-CARE METER ID UU14174216
[2017-06-20 08:56] VITALS: BP 144/95
[2017-06-20 11:05] LABS: POINT-OF-CARE METER ID UU14174216
[2017-06-20 11:37] VITALS: BP 139/82
== END 2017-06-20 13:24 | disposition home or self-care (01) | DRG 291 ==
LOC: EME → EDBD 04:19 → EME 04:19 → EDOF 08:20 → 4EAST 08:20 → ENRESERV 08:23 → 4EAST 13:49
PROVIDERS: Emergency Medicine; Internal Medicine
DX: I11.0 Hypertensive heart disease with heart failure (principal); I50.23 Acute on chronic systolic (congestive) heart failure; J96.01 Acute respiratory failure with hypoxia; I25.5 Ischemic cardiomyopathy; E78.5 Hyperlipidemia, unspecified; I25.10 Atherosclerotic heart disease of native coronary artery without angina pectoris; E11.9 Type 2 diabetes mellitus without complications; J44.9 Chronic obstructive pulmonary disease, unspecified; K21.9 Gastro-esophageal reflux disease without esophagitis; Z79.4 Long term (current) use of insulin; I25.2 Old myocardial infarction; Z87.891 Personal history of nicotine dependence; Z89.511 Acquired absence of right leg below knee; Z89.512 Acquired absence of left leg below knee; Z95.1 Presence of aortocoronary bypass graft; Z99.81 Dependence on supplemental oxygen; Z79.02 Long term (current) use of antithrombotics/antiplatelets; Z79.82 Long term (current) use of aspirin
CPT/HCPCS: 36600; 71010; 80048; 82803; 82948; 83880; 84484; 84999; 85025; 93005; 94640 76; 94799; 99202; 99281; 99285; J1100; J1650; J1815; J1940; J2920; J7644

== ENCOUNTER 2017-07-31 07:42 | Observation (INO) | payer OTHER ==
[~2017-07-31] VITALS: Ht 182.9 cm; Wt 74.1 kg
[2017-07-31 08:40] LABS: HEMATOCRIT 36.3 % (38.0-50.0); MCH 26.3 PG (29.0-34.0); MCHC 32.5 G/DL (30.0-36.0); MCV 80.8 FL (86-99); MEAN PLAT.VOLUME 10.3 uM^3 (9.0-12.4); PLATELET COUNT 219 K/uL (156-360); RBC DIS.WIDTH-SD 52.6 % (39-53); RED BLOOD COUNT 4.49 M/uL (4.00-5.50); WHITE BLOOD COUNT 9.1 K/uL (4.1-10.2)
[2017-07-31 09:30] LABS: CHLORIDE 106 mEq/L (99-109); POTASSIUM 4.6 mEq/L (3.7-5.4); SODIUM 136 mEq/L (136-147)
[2017-07-31 09:32] LABS: GLUCOSE 171 mg/dL (70-99)
[2017-07-31 09:34] LABS: ANION GAP 10 MEQ/L (2-14)
[2017-07-31 09:36] LABS: GFR ESTIMATE (CALCULATED) > 59 mL/min/
[2017-07-31 09:37] LABS: UREA NITROGEN (BUN) 14 mg/dL (9-23)
[2017-07-31 09:43] LABS: TROP-I INTERPRETATION NEGATIVE; TROPONIN-I 0.03 ng/mL (0.0-0.30)
[2017-07-31 18:55] LABS: TROP-I INTERPRETATION NEGATIVE; TROPONIN-I 0.05 ng/mL (0.0-0.30)
[2017-07-31 20:15] VITALS: BP 185/118
[2017-07-31 21:44] LABS: POINT-OF-CARE METER ID UU13113831
[2017-07-31 22:42] VITALS: BP 157/91
[2017-08-01 00:32] VITALS: BP 161/90
[2017-08-01 01:59] LABS: CHLORIDE 107 mEq/L (99-109); POTASSIUM 4.2 mEq/L (3.7-5.4); SODIUM 138 mEq/L (136-147)
[2017-08-01 02:01] LABS: GLUCOSE 159 mg/dL (70-99)
[2017-08-01 02:02] LABS: ANION GAP 10 MEQ/L (2-14)
[2017-08-01 02:04] LABS: GFR ESTIMATE (CALCULATED) > 59 mL/min/
[2017-08-01 02:05] LABS: UREA NITROGEN (BUN) 20 mg/dL (9-23)
[2017-08-01 02:13] LABS: TROP-I INTERPRETATION NEGATIVE; TROPONIN-I 0.08 ng/mL (0.0-0.30)
[2017-08-01 04:30] VITALS: BP 164/88
[2017-08-01 07:27] VITALS: BP 159/101
[2017-08-01 08:38] LABS: POINT-OF-CARE METER ID UU13113831
[2017-08-01 11:31] VITALS: BP 138/97
[2017-08-01 12:35] LABS: POINT-OF-CARE METER ID UU13113831
[2017-08-01] MEDS ORDERED: COREG25 M1 PO (13:18)
[2017-08-01] MEDS ORDERED: CATAPRES0.1 MG PO (13:18)
[2017-08-01] MEDS ORDERED: ZESTRIL40 MG PO (13:18)
[2017-08-01] MEDS ORDERED: LASIX40 MG PO (13:19)
== END 2017-08-01 15:49 | disposition home health service (06) ==
LOC: EME 07:42 → EDOF 17:24 → 5WEST 17:24 → EDOF 17:24 → ENRESERV 17:28 → 5WEST 20:08
PROVIDERS: Emergency Medicine; Internal Medicine; Physician Assistant
DX: I16.0 Hypertensive urgency (principal); I11.0 Hypertensive heart disease with heart failure; I50.9 Heart failure, unspecified; R07.9 Chest pain, unspecified; E11.65 Type 2 diabetes mellitus with hyperglycemia; J44.9 Chronic obstructive pulmonary disease, unspecified; Z99.81 Dependence on supplemental oxygen; I25.10 Atherosclerotic heart disease of native coronary artery without angina pectoris; I25.5 Ischemic cardiomyopathy; G54.6 Phantom limb syndrome with pain; E78.5 Hyperlipidemia, unspecified; K21.9 Gastro-esophageal reflux disease without esophagitis; Z91.14 Patient's other noncompliance with medication regimen; I25.2 Old myocardial infarction; Z95.1 Presence of aortocoronary bypass graft; Z89.512 Acquired absence of left leg below knee; Z89.511 Acquired absence of right leg below knee; Z87.01 Personal history of pneumonia (recurrent); Z79.4 Long term (current) use of insulin; Z79.82 Long term (current) use of aspirin; Z87.891 Personal history of nicotine dependence
CPT/HCPCS: 71010; 78582; 80048; 82948; 84484; 85027; 85379; 93005; 94640; 94640 76; 94799; 99202; 99281; 99285; A9540; A9567; G0378; J0360; J1650; J1815; J2270; J2405; J7030

== ENCOUNTER 2017-08-14 21:14 | Inpatient (IN) | payer OTHER ==
[~2017-08-14] VITALS: Ht 182.9 cm; Wt 68.5 kg
[2017-08-14 00:30] VITALS: BP 155/92
[2017-08-14 21:44] LABS: EOSINOPHIL (%) 3.4 % (0-5); EOSINOPHIL COUNT 0.3 K/uL (0-0.3); HEMATOCRIT 34.9 % (38.0-50.0); IMMATURE GRANULOCYTE (%) 2.6 % (0.0-0.7); IMMATURE GRANULOCYTE COUNT 0.2 K/uL; INSTRUMENT ABS NEUTROPHIL CT 3.9 K/uL; LYMPHOCYTE COUNT 2.4 K/uL (1.0-2.8); MCH 26.7 PG (29.0-34.0); MCHC 30.9 G/DL (30.0-36.0); MCV 86.4 FL (86-99); MEAN PLAT.VOLUME 9.8 uM^3 (9.0-12.4); MONOCYTE (%) 9.9 % (3-12); MONOCYTE COUNT 0.7 K/uL (0-0.8); NEUTROPHIL (%) 51.9 % (45-76); NEUTROPHIL COUNT 3.9 K/uL (1.8-6.4); PLATELET COUNT 195 K/uL (156-360); RBC DIS.WIDTH-CV 17.3 % (11.8-14.6); RBC DIS.WIDTH-SD 55.4 % (39-53); RED BLOOD COUNT 4.04 M/uL (4.00-5.50); WHITE BLOOD COUNT 7.4 K/uL (4.1-10.2)
[2017-08-14 21:49] LABS: CHLORIDE 96 mEq/L (99-109); SODIUM 139 mEq/L (136-147)
[2017-08-14 21:51] LABS: GLUCOSE 72 mg/dL (70-99)
[2017-08-14 21:52] LABS: ANION GAP 18 MEQ/L (2-14)
[2017-08-14 21:53] LABS: TOTAL BILIRUBIN 0.5 mg/dL (0.0-1.0)
[2017-08-14 21:54] LABS: ALKALINE PHOSPHATASE 91 IU/L (3-129)
[2017-08-14 21:55] LABS: GFR ESTIMATE (CALCULATED) > 59 mL/min/
[2017-08-14 21:56] LABS: UREA NITROGEN (BUN) 12 mg/dL (9-23)
[2017-08-14 22:00] LABS: TROP-I INTERPRETATION NEGATIVE; TROPONIN-I 0.03 ng/mL (0.0-0.30)
[2017-08-14 22:14] LABS: ADD MIUA? YES; BILIRUBIN NEGATIVE; BLOOD SMALL; COLOR YELLOW ((YELLOW)); GLUCOSE (STRIP) NEGATIVE; KETONES NEGATIVE; LEUKOCYTES NEGATIVE; NITRITE NEGATIVE; PROTEIN (STRIP) 100; SPECIFIC GRAVITY 1.006 (1.000-1.030); UROBILINOGEN 0.2 MG/DL (0.2-1.0)
[2017-08-14 22:31] LABS: BASE EXCESS 5.3 mEq/L (-3 to +3); CARBOXY HGB 3.8 % (0-5)
[2017-08-14 22:32] LABS: COMMENTS - BLOOD GASES C+; DEVICE VENT; FI02 100 %; MODE A/C; PCO2 50 mm Hg (35-45); PO2 250 mm Hg (80-100); SITE RB
[2017-08-14 22:33] LABS: MECHANICAL RATE 18 resp/min; PEEP 5 CM/H20; TIDAL VOLUME 500 ML; TOTAL RESP RATE 36 resp/min
[2017-08-14 22:34] LABS: EPITHELIAL CELLS RARE /HPF; MUCUS RARE /LPF; WHITE BLOOD CELLS 30-40 /HPF (0-5)
[2017-08-14 22:35] LABS: BACTERIA 1+ /HPF; CASTS NONE SEEN /LPF; CRYSTALS NONE SEEN; UCUL ADDED? YES
[2017-08-15] VITALS (14 sets, daily range): BP systolic 123–167; BP diastolic 75–102
[2017-08-15 00:55] LABS: COCAINE PRESUMPTIVE POSITIVE (150 ng/mL); PHENCYCLIDINE NEGATIVE (25 ng/mL); THC CANNABINOIDS PRESUMPTIVE POSITIVE (50 ng/mL)
[2017-08-15 00:56] LABS: ADD MEDTOX COMMENT Y; AMPHETAMINE NEGATIVE (500 ng/mL); BARBITURATES NEGATIVE (200 ng/mL); BENZODIAZEPINES NEGATIVE (150 ng/mL); INTERNAL CONTROLS VALID? YES; METHADONE NEGATIVE (200 ng/mL); METHAMPHETAMINE NEGATIVE (500 ng/mL); OPIATES (MORPHINE) NEGATIVE (100 ng/mL); OXYCODONE NEGATIVE (100 ng/mL); PROPOXYPHENE NEGATIVE (300 ng/mL); TRICYCLIC ANTIDEPRESSANTS NEGATIVE (300 ng/mL)
[2017-08-15 01:50] LABS: METH RESISTANT S AUREUS PCR NEGATIVE (NEGATIVE)
[2017-08-15 01:56] LABS: PROBE CHECK PASS; SPECIMEN PROCESSING CONTROL PASS
[2017-08-15 02:54] LABS: BASE EXCESS 4.7 mEq/L (-3 to +3); BICARBONATE 29.2 mEq/L (22-26); CARBOXY HGB 2.2 % (0-5); COMMENTS - BLOOD GASES C+; DEVICE VENT; FI02 70 %; MECHANICAL RATE 18 resp/min; METHEMOGLOBIN 1.1 % (0-1.5); MODE AC; PCO2 42 mm Hg (35-45); PO2 173 mm Hg (80-100); SITE ALINE; pH 7.45 (7.35-7.45)
[2017-08-15 02:55] LABS: INSPIRATION TIME 0.5 seconds; PEEP 5 CM/H20; TIDAL VOLUME 500 ML; TOTAL RESP RATE 18 resp/min
[2017-08-15 04:30] LABS: EOSINOPHIL (%) 0 % (0-5); HEMATOCRIT 28.4 % (38.0-50.0); IMMATURE GRANULOCYTE (%) 0.4 % (0.0-0.7); INSTRUMENT ABS NEUTROPHIL CT 3.9 K/uL; LYMPHOCYTE COUNT 0.3 K/uL (1.0-2.8); MCH 26.6 PG (29.0-34.0); MCHC 33.1 G/DL (30.0-36.0); MCV 80.5 FL (86-99); MEAN PLAT.VOLUME 10.1 uM^3 (9.0-12.4); MONOCYTE (%) 7.7 % (3-12); MONOCYTE COUNT 0.4 K/uL (0-0.8); NEUTROPHIL (%) 85.5 % (45-76); NEUTROPHIL COUNT 3.9 K/uL (1.8-6.4); PLATELET COUNT 162 K/uL (156-360); RBC DIS.WIDTH-CV 16.9 % (11.8-14.6); RBC DIS.WIDTH-SD 49.2 % (39-53); RED BLOOD COUNT 3.53 M/uL (4.00-5.50); WHITE BLOOD COUNT 4.5 K/uL (4.1-10.2)
[2017-08-15 04:33] LABS: CHLORIDE 102 mEq/L (99-109); SODIUM 140 mEq/L (136-147)
[2017-08-15 04:34] LABS: MAGNESIUM 1.3 mg/dL (1.3-2.7)
[2017-08-15 04:37] LABS: ANION GAP 12 MEQ/L (2-14); GLUCOSE 12 mg/dL (70-99)
[2017-08-15 04:39] LABS: GFR ESTIMATE (CALCULATED) > 59 mL/min/
[2017-08-15 04:40] LABS: UREA NITROGEN (BUN) 14 mg/dL (9-23)
[2017-08-15 04:45] LABS: TROP-I INTERPRETATION NEGATIVE; TROPONIN-I 0.13 ng/mL (0.0-0.30)
[2017-08-15 05:41] LABS: POINT-OF-CARE METER ID UU14208751
[2017-08-15 11:29] LABS: POINT-OF-CARE METER ID UU14208751
[2017-08-15 11:47] LABS: EOSINOPHIL (%) 0 % (0-5); HEMATOCRIT 32.6 % (38.0-50.0); IMMATURE GRANULOCYTE (%) 0.4 % (0.0-0.7); INSTRUMENT ABS NEUTROPHIL CT 8.9 K/uL; LYMPHOCYTE COUNT 0.3 K/uL (1.0-2.8); MCH 27.3 PG (29.0-34.0); MCHC 33.4 G/DL (30.0-36.0); MCV 81.5 FL (86-99); MEAN PLAT.VOLUME 10.2 uM^3 (9.0-12.4); MONOCYTE COUNT 0.6 K/uL (0-0.8); NEUTROPHIL (%) 90.3 % (45-76); NEUTROPHIL COUNT 8.9 K/uL (1.8-6.4); PLATELET COUNT 163 K/uL (156-360); RBC DIS.WIDTH-CV 17.1 % (11.8-14.6); RBC DIS.WIDTH-SD 50.6 % (39-53); WHITE BLOOD COUNT 9.9 K/uL (4.1-10.2)
[2017-08-15 12:06] LABS: TROP-I INTERPRETATION NEGATIVE; TROPONIN-I 0.11 ng/mL (0.0-0.30)
[2017-08-15 12:07] LABS: TROP-I INTERPRETATION NEGATIVE; TROPONIN-I 0.09 ng/mL (0.0-0.30)
[2017-08-15 12:15] LABS: ANION GAP 10 MEQ/L (2-14); CHLORIDE 100 MEQ/L (99-109); GFR ESTIMATE (CALCULATED) > 59 mL/min/; GLUCOSE 175 mg/dL (70-99); MAGNESIUM 2.7 mg/dl (1.3-2.7); POTASSIUM 4.1 MEQ/L (3.7-5.4); SAMPLE HEMOLYSIS CHECK 0; SAMPLE ICTERIC CHECK 0; SAMPLE LIPEMIA CHECK 0; SODIUM 135 MEQ/L (136-147); UREA NITROGEN (BUN) 15 mg/dL (9-23)
[2017-08-15 14:28] LABS: POINT-OF-CARE METER ID UU14208751
[2017-08-15 17:56] LABS: EOSINOPHIL (%) 0 % (0-5); HEMATOCRIT 31.6 % (38.0-50.0); IMMATURE GRANULOCYTE (%) 0.4 % (0.0-0.7); IMMATURE GRANULOCYTE COUNT 0.1 K/uL; INSTRUMENT ABS NEUTROPHIL CT 10.6 K/uL; LYMPHOCYTE COUNT 0.4 K/uL (1.0-2.8); MCH 26.3 PG (29.0-34.0); MCHC 32.6 G/DL (30.0-36.0); MCV 80.8 FL (86-99); MONOCYTE (%) 4.4 % (3-12); MONOCYTE COUNT 0.5 K/uL (0-0.8); NEUTROPHIL COUNT 10.6 K/uL (1.8-6.4); PLATELET COUNT 155 K/uL (156-360); RBC DIS.WIDTH-CV 16.8 % (11.8-14.6); RBC DIS.WIDTH-SD 48.9 % (39-53); RED BLOOD COUNT 3.91 M/uL (4.00-5.50); WHITE BLOOD COUNT 11.5 K/uL (4.1-10.2)
[2017-08-15 18:18] LABS: POINT-OF-CARE METER ID UU14208751
[2017-08-15 18:28] LABS: TROP-I INTERPRETATION NEGATIVE; TROPONIN-I 0.06 ng/mL (0.0-0.30)
[2017-08-15 18:32] LABS: ANION GAP 9 MEQ/L (2-14); CHLORIDE 101 MEQ/L (99-109); GFR ESTIMATE (CALCULATED) > 59 mL/min/; GLUCOSE 212 mg/dL (70-99); MAGNESIUM 2.4 mg/dl (1.3-2.7); POTASSIUM 3.9 MEQ/L (3.7-5.4); SAMPLE HEMOLYSIS CHECK 0; SAMPLE ICTERIC CHECK 0; SAMPLE LIPEMIA CHECK 0; SODIUM 134 MEQ/L (136-147); UREA NITROGEN (BUN) 15 mg/dL (9-23)
[2017-08-15 22:30] LABS: POINT-OF-CARE METER ID UU13113803
[2017-08-16] VITALS (10 sets, daily range): BP systolic 105–160; BP diastolic 62–95
[2017-08-16 00:50] LABS: EOSINOPHIL (%) 0 % (0-5); HEMATOCRIT 30.6 % (38.0-50.0); IMMATURE GRANULOCYTE (%) 0.4 % (0.0-0.7); IMMATURE GRANULOCYTE COUNT 0.1 K/uL; INSTRUMENT ABS NEUTROPHIL CT 11.1 K/uL; LYMPHOCYTE COUNT 0.5 K/uL (1.0-2.8); MCH 26.7 PG (29.0-34.0); MCHC 33.3 G/DL (30.0-36.0); MCV 80.1 FL (86-99); MEAN PLAT.VOLUME 10.7 uM^3 (9.0-12.4); MONOCYTE (%) 4.6 % (3-12); MONOCYTE COUNT 0.6 K/uL (0-0.8); NEUTROPHIL (%) 91.2 % (45-76); NEUTROPHIL COUNT 11.1 K/uL (1.8-6.4); PLATELET COUNT 155 K/uL (156-360); RBC DIS.WIDTH-CV 16.9 % (11.8-14.6); RBC DIS.WIDTH-SD 49.2 % (39-53); RED BLOOD COUNT 3.82 M/uL (4.00-5.50); WHITE BLOOD COUNT 12.2 K/uL (4.1-10.2)
[2017-08-16 01:03] LABS: CHLORIDE 105 mEq/L (99-109); POTASSIUM 3.7 mEq/L (3.7-5.4); SODIUM 134 mEq/L (136-147)
[2017-08-16 01:05] LABS: GLUCOSE 240 mg/dL (70-99); MAGNESIUM 2.1 mg/dL (1.3-2.7)
[2017-08-16 01:07] LABS: ANION GAP 6 MEQ/L (2-14)
[2017-08-16 01:09] LABS: GFR ESTIMATE (CALCULATED) > 59 mL/min/
[2017-08-16 01:10] LABS: UREA NITROGEN (BUN) 14 mg/dL (9-23)
[2017-08-16 01:11] LABS: TROP-I INTERPRETATION NEGATIVE; TROPONIN-I 0.04 ng/mL (0.0-0.30)
[2017-08-16 01:12] LABS: TROP-I INTERPRETATION NEGATIVE; TROPONIN-I 0.04 ng/mL (0.0-0.30)
[2017-08-16 02:27] LABS: POINT-OF-CARE METER ID UU13113748
[2017-08-16 05:54] LABS: EOSINOPHIL (%) 0 % (0-5); HEMATOCRIT 31.3 % (38.0-50.0); IMMATURE GRANULOCYTE (%) 0.5 % (0.0-0.7); IMMATURE GRANULOCYTE COUNT 0.1 K/uL; LYMPHOCYTE COUNT 0.6 K/uL (1.0-2.8); MCH 26.3 PG (29.0-34.0); MCHC 32.6 G/DL (30.0-36.0); MCV 80.7 FL (86-99); MEAN PLAT.VOLUME 9.9 uM^3 (9.0-12.4); MONOCYTE (%) 4.2 % (3-12); MONOCYTE COUNT 0.6 K/uL (0-0.8); NEUTROPHIL (%) 90.8 % (45-76); PLATELET COUNT 152 K/uL (156-360); RBC DIS.WIDTH-CV 16.9 % (11.8-14.6); RED BLOOD COUNT 3.88 M/uL (4.00-5.50); WHITE BLOOD COUNT 13.2 K/uL (4.1-10.2)
[2017-08-16 06:06] LABS: INTER. NORMALIZED RATIO 1.3; PROTHROMBIN TIME 15.3 SEC (10.2-12.9)
[2017-08-16 06:07] LABS: POINT-OF-CARE METER ID UU13113748
[2017-08-16 06:31] LABS: TROP-I INTERPRETATION NEGATIVE; TROPONIN-I 0.05 ng/mL (0.0-0.30)
[2017-08-16 06:50] LABS: PTT 40.8 SEC (25-37)
[2017-08-16 07:33] LABS: ANION GAP 11 MEQ/L (2-14); CHLORIDE 105 MEQ/L (99-109); MAGNESIUM 2.3 mg/dl (1.3-2.7); POTASSIUM 3.7 MEQ/L (3.7-5.4); SAMPLE HEMOLYSIS CHECK 0; SAMPLE ICTERIC CHECK 0; SAMPLE LIPEMIA CHECK 0; SODIUM 139 MEQ/L (136-147)
[2017-08-16 07:38] LABS: GFR ESTIMATE (CALCULATED) > 59 mL/min/; GLUCOSE 201 mg/dL (70-99); UREA NITROGEN (BUN) 14 mg/dL (9-23)
[2017-08-16 08:30] LABS: BASE EXCESS 1.7 mEq/L (-3 to +3); BICARBONATE 25.7 mEq/L (22-26); CARBOXY HGB 1.9 % (0-5); METHEMOGLOBIN 1.7 % (0-1.5); pH 7.45 (7.35-7.45)
[2017-08-16 08:32] LABS: COMMENTS - BLOOD GASES C+; DEVICE VENT; FI02 30 %; MECHANICAL RATE 18 resp/min; MODE AC; PCO2 37 mm Hg (35-45); PO2 77 mm Hg (80-100); SITE RR ALINE
[2017-08-16 08:33] LABS: INSPIRATION TIME 0.9 seconds; PEEP 5 CM/H20; TIDAL VOLUME 500 ML; TOTAL RESP RATE 18 resp/min
[2017-08-16 10:49] LABS: POINT-OF-CARE METER ID UU13113748
[2017-08-16 12:54] LABS: EOSINOPHIL (%) 0.2 % (0-5); HEMATOCRIT 26.7 % (38.0-50.0); IMMATURE GRANULOCYTE (%) 0.6 % (0.0-0.7); IMMATURE GRANULOCYTE COUNT 0.1 K/uL; INSTRUMENT ABS NEUTROPHIL CT 10.5 K/uL; LYMPHOCYTE COUNT 0.7 K/uL (1.0-2.8); MCH 27.3 PG (29.0-34.0); MCHC 33.7 G/DL (30.0-36.0); MCV 80.9 FL (86-99); MEAN PLAT.VOLUME 10.8 uM^3 (9.0-12.4); MONOCYTE (%) 5.2 % (3-12); MONOCYTE COUNT 0.6 K/uL (0-0.8); NEUTROPHIL COUNT 10.5 K/uL (1.8-6.4); PLATELET COUNT 150 K/uL (156-360); RBC DIS.WIDTH-CV 16.9 % (11.8-14.6); RBC DIS.WIDTH-SD 49.8 % (39-53); WHITE BLOOD COUNT 11.9 K/uL (4.1-10.2)
[2017-08-16 13:14] LABS: TROP-I INTERPRETATION NEGATIVE; TROPONIN-I 0.05 ng/mL (0.0-0.30)
[2017-08-16 13:33] LABS: POINT-OF-CARE METER ID UU13113748
[2017-08-16 14:55] LABS: ANION GAP 8 MEQ/L (2-14); CHLORIDE 107 MEQ/L (99-109); GFR ESTIMATE (CALCULATED) > 59 mL/min/; GLUCOSE 161 mg/dL (70-99); MAGNESIUM 2.1 mg/dl (1.3-2.7); POTASSIUM 3.3 MEQ/L (3.7-5.4); SAMPLE HEMOLYSIS CHECK 0; SAMPLE ICTERIC CHECK 0; SAMPLE LIPEMIA CHECK 0; SODIUM 140 MEQ/L (136-147); UREA NITROGEN (BUN) 13 mg/dL (9-23)
[2017-08-16 17:34] LABS: POINT-OF-CARE METER ID UU13113748
[2017-08-16 17:48] LABS: EOSINOPHIL (%) 0.2 % (0-5); HEMATOCRIT 26.8 % (38.0-50.0); IMMATURE GRANULOCYTE (%) 0.8 % (0.0-0.7); IMMATURE GRANULOCYTE COUNT 0.1 K/uL; INSTRUMENT ABS NEUTROPHIL CT 10.5 K/uL; LYMPHOCYTE COUNT 0.7 K/uL (1.0-2.8); MCH 26.3 PG (29.0-34.0); MCHC 32.8 G/DL (30.0-36.0); MCV 80.2 FL (86-99); MEAN PLAT.VOLUME 10.3 uM^3 (9.0-12.4); MONOCYTE (%) 6.1 % (3-12); MONOCYTE COUNT 0.7 K/uL (0-0.8); NEUTROPHIL (%) 87.2 % (45-76); NEUTROPHIL COUNT 10.5 K/uL (1.8-6.4); PLATELET COUNT 157 K/uL (156-360); RBC DIS.WIDTH-SD 49.6 % (39-53); RED BLOOD COUNT 3.34 M/uL (4.00-5.50)
[2017-08-16 18:08] LABS: ANION GAP 8 MEQ/L (2-14); CHLORIDE 108 MEQ/L (99-109); GFR ESTIMATE (CALCULATED) > 59 mL/min/; GLUCOSE 123 mg/dL (70-99); MAGNESIUM 2.1 mg/dl (1.3-2.7); POTASSIUM 3.4 MEQ/L (3.7-5.4); SAMPLE HEMOLYSIS CHECK 0; SAMPLE ICTERIC CHECK 0; SAMPLE LIPEMIA CHECK 0; SODIUM 140 MEQ/L (136-147); TROP-I INTERPRETATION NEGATIVE; TROPONIN-I 0.05 ng/mL (0.0-0.30); UREA NITROGEN (BUN) 13 mg/dL (9-23)
[2017-08-16 22:11] LABS: POINT-OF-CARE METER ID UU13113748
[2017-08-17] VITALS: BP 149/86
[2017-08-17 00:43] LABS: EOSINOPHIL (%) 0.2 % (0-5); HEMATOCRIT 27.6 % (38.0-50.0); IMMATURE GRANULOCYTE (%) 0.9 % (0.0-0.7); IMMATURE GRANULOCYTE COUNT 0.1 K/uL; INSTRUMENT ABS NEUTROPHIL CT 10.3 K/uL; LYMPHOCYTE COUNT 1.3 K/uL (1.0-2.8); MCH 26.3 PG (29.0-34.0); MCV 79.8 FL (86-99); MEAN PLAT.VOLUME 10.3 uM^3 (9.0-12.4); MONOCYTE (%) 6.2 % (3-12); MONOCYTE COUNT 0.8 K/uL (0-0.8); NEUTROPHIL (%) 82.1 % (45-76); NEUTROPHIL COUNT 10.3 K/uL (1.8-6.4); PLATELET COUNT 161 K/uL (156-360); RBC DIS.WIDTH-CV 17.2 % (11.8-14.6); RBC DIS.WIDTH-SD 49.5 % (39-53); RED BLOOD COUNT 3.46 M/uL (4.00-5.50); WHITE BLOOD COUNT 12.5 K/uL (4.1-10.2)
[2017-08-17 00:54] LABS: CHLORIDE 106 mEq/L (99-109); POTASSIUM 3.4 mEq/L (3.7-5.4); SODIUM 138 mEq/L (136-147)
[2017-08-17 00:55] LABS: MAGNESIUM 1.9 mg/dL (1.3-2.7)
[2017-08-17 00:56] LABS: GLUCOSE 182 mg/dL (70-99)
[2017-08-17 00:58] LABS: ANION GAP 10 MEQ/L (2-14)
[2017-08-17 01:00] LABS: GFR ESTIMATE (CALCULATED) > 59 mL/min/
[2017-08-17 01:01] LABS: UREA NITROGEN (BUN) 12 mg/dL (9-23)
[2017-08-17 01:04] LABS: TROP-I INTERPRETATION NEGATIVE; TROPONIN-I 0.04 ng/mL (0.0-0.30)
[2017-08-17 02:01] LABS: POINT-OF-CARE METER ID UU14162636
[2017-08-17 04:00] VITALS: BP 152/91
[2017-08-17 06:31] LABS: POINT-OF-CARE METER ID UU14162636
[2017-08-17 06:57] LABS: EOSINOPHIL (%) 0.5 % (0-5); EOSINOPHIL COUNT 0.1 K/uL (0-0.3); HEMATOCRIT 25.8 % (38.0-50.0); IMMATURE GRANULOCYTE (%) 0.6 % (0.0-0.7); IMMATURE GRANULOCYTE COUNT 0.1 K/uL; INSTRUMENT ABS NEUTROPHIL CT 7.9 K/uL; LYMPHOCYTE COUNT 1.4 K/uL (1.0-2.8); MCHC 32.9 G/DL (30.0-36.0); MCV 81.9 FL (86-99); MEAN PLAT.VOLUME 11.1 uM^3 (9.0-12.4); MONOCYTE (%) 5.9 % (3-12); MONOCYTE COUNT 0.6 K/uL (0-0.8); NEUTROPHIL (%) 78.8 % (45-76); NEUTROPHIL COUNT 7.9 K/uL (1.8-6.4); PLATELET COUNT 153 K/uL (156-360); RBC DIS.WIDTH-CV 17.4 % (11.8-14.6); RBC DIS.WIDTH-SD 51.9 % (39-53); RED BLOOD COUNT 3.15 M/uL (4.00-5.50); WHITE BLOOD COUNT 10.1 K/uL (4.1-10.2)
[2017-08-17 07:16] LABS: TROP-I INTERPRETATION NEGATIVE; TROPONIN-I 0.04 ng/mL (0.0-0.30)
[2017-08-17 07:22] LABS: ANION GAP 7 MEQ/L (2-14); CHLORIDE 109 MEQ/L (99-109); GFR ESTIMATE (CALCULATED) > 59 mL/min/; GLUCOSE 176 mg/dL (70-99); POTASSIUM 3.3 MEQ/L (3.7-5.4); SAMPLE HEMOLYSIS CHECK 0; SAMPLE ICTERIC CHECK 0; SAMPLE LIPEMIA CHECK 0; SODIUM 140 MEQ/L (136-147); UREA NITROGEN (BUN) 11 mg/dL (9-23)
[2017-08-17 08:00] VITALS: BP 151/85
[2017-08-17 10:45] LABS: POINT-OF-CARE METER ID UU14162636
[2017-08-17 16:00] VITALS: BP 135/92
[2017-08-17 16:45] LABS: ANION GAP 8 MEQ/L (2-14); CHLORIDE 112 MEQ/L (99-109); GFR ESTIMATE (CALCULATED) > 59 mL/min/; GLUCOSE 124 mg/dL (70-99); POTASSIUM 4.5 MEQ/L (3.7-5.4); SAMPLE HEMOLYSIS CHECK 0; SAMPLE ICTERIC CHECK 0; SAMPLE LIPEMIA CHECK 0; SODIUM 143 MEQ/L (136-147); UREA NITROGEN (BUN) 10 mg/dL (9-23)
[2017-08-17 20:00] VITALS: BP 145/97
[2017-08-17 23:28] LABS: POINT-OF-CARE METER ID UU14174217
[2017-08-18] VITALS: BP 145/91
[2017-08-18 02:53] LABS: BASE EXCESS -0.5 mEq/L (-3 to +3); BICARBONATE 24.2 mEq/L (22-26); CARBOXY HGB 1.6 % (0-5); COMMENTS - BLOOD GASES C+; DEVICE VENT; FI02 50 %; METHEMOGLOBIN 1.3 % (0-1.5); MODE AC; PCO2 39 mm Hg (35-45); PO2 101 mm Hg (80-100); SITE ALINE
[2017-08-18 02:54] LABS: MECHANICAL RATE 14 resp/min; PEEP 5 CM/H20; TIDAL VOLUME 500 ML; TOTAL RESP RATE 14 resp/min
[2017-08-18 03:02] LABS: INTER. NORMALIZED RATIO 1.2
[2017-08-18 03:04] LABS: PTT 55.2 SEC (25-37)
[2017-08-18 05:14] LABS: EOSINOPHIL (%) 0.6 % (0-5); HEMATOCRIT 29.2 % (38.0-50.0); IMMATURE GRANULOCYTE (%) 0.7 % (0.0-0.7); IMMATURE GRANULOCYTE COUNT 0.1 K/uL; INSTRUMENT ABS NEUTROPHIL CT 5.9 K/uL; LYMPHOCYTE COUNT 0.7 K/uL (1.0-2.8); MCH 27.6 PG (29.0-34.0); MCHC 33.6 G/DL (30.0-36.0); MCV 82.3 FL (86-99); MEAN PLAT.VOLUME 10.4 uM^3 (9.0-12.4); MONOCYTE (%) 5.1 % (3-12); MONOCYTE COUNT 0.4 K/uL (0-0.8); NEUTROPHIL (%) 83.7 % (45-76); NEUTROPHIL COUNT 5.9 K/uL (1.8-6.4); PLATELET COUNT 155 K/uL (156-360); RBC DIS.WIDTH-CV 17.4 % (11.8-14.6); RED BLOOD COUNT 3.55 M/uL (4.00-5.50)
[2017-08-18 05:54] LABS: ANION GAP 15 MEQ/L (2-14); CHLORIDE 106 MEQ/L (99-109); GFR ESTIMATE (CALCULATED) > 59 mL/min/; GLUCOSE 153 mg/dL (70-99); MAGNESIUM 2.3 mg/dl (1.3-2.7); POTASSIUM 4.1 MEQ/L (3.7-5.4); SAMPLE HEMOLYSIS CHECK 0; SAMPLE ICTERIC CHECK 0; SAMPLE LIPEMIA CHECK 0; SODIUM 142 MEQ/L (136-147); UREA NITROGEN (BUN) 14 mg/dL (9-23)
[2017-08-18 06:16] LABS: POINT-OF-CARE METER ID UU14162636
[2017-08-18 08:00] VITALS: BP 154/91
[2017-08-18 12:00] VITALS: BP 168/96
[2017-08-18 12:04] LABS: POINT-OF-CARE METER ID UU14162636
[2017-08-18 15:59] LABS: POINT-OF-CARE METER ID UU13113731
[2017-08-18 16:00] VITALS: BP 158/87
[2017-08-18 16:33] LABS: ANION GAP 10 MEQ/L (2-14); CHLORIDE 107 MEQ/L (99-109); GFR ESTIMATE (CALCULATED) > 59 mL/min/; GLUCOSE 147 mg/dL (70-99); POTASSIUM 4.1 MEQ/L (3.7-5.4); SAMPLE HEMOLYSIS CHECK 0; SAMPLE ICTERIC CHECK 0; SAMPLE LIPEMIA CHECK 0; SODIUM 140 MEQ/L (136-147); UREA NITROGEN (BUN) 16 mg/dL (9-23)
[2017-08-18 20:00] VITALS: BP 157/85
[2017-08-19] VITALS (8 sets, daily range): BP systolic 143–164; BP diastolic 77–85
[2017-08-19 00:10] LABS: POINT-OF-CARE METER ID UU14162636
[2017-08-19 05:33] LABS: POINT-OF-CARE METER ID UU13113803
[2017-08-19 06:52] LABS: ANION GAP 11 MEQ/L (2-14); CHLORIDE 106 MEQ/L (99-109); GFR ESTIMATE (CALCULATED) > 59 mL/min/; GLUCOSE 112 mg/dL (70-99); POTASSIUM 3.7 MEQ/L (3.7-5.4); SAMPLE HEMOLYSIS CHECK 0; SAMPLE ICTERIC CHECK 0; SAMPLE LIPEMIA CHECK 0; SODIUM 142 MEQ/L (136-147); UREA NITROGEN (BUN) 17 mg/dL (9-23)
[2017-08-19 12:00] LABS: POINT-OF-CARE METER ID UU13113748
[2017-08-19 17:21] LABS: POINT-OF-CARE METER ID UU13113748
[2017-08-19 23:49] LABS: POINT-OF-CARE METER ID UU14314082
[2017-08-20] VITALS (7 sets, daily range): BP systolic 0–166; BP diastolic 0–85
[2017-08-20 05:15] LABS: POINT-OF-CARE METER ID UU13113748
[2017-08-20 05:20] LABS: BASE EXCESS 5.5 mEq/L (-3 to +3); BICARBONATE 28.6 mEq/L (22-26); CARBOXY HGB 1.5 % (0-5); METHEMOGLOBIN 1.5 % (0-1.5); PCO2 35 mm Hg (35-45); PO2 78 mm Hg (80-100); pH 7.52 (7.35-7.45)
[2017-08-20 05:21] LABS: COMMENTS - BLOOD GASES C+; DEVICE VENT; FI02 30 %; MECHANICAL RATE 14 resp/min; MODE ACVC; PEEP 5 CM/H20; SITE A-LINE; TIDAL VOLUME 500 ML; TOTAL RESP RATE 14 resp/min
[2017-08-20 05:42] LABS: EOSINOPHIL (%) 1.9 % (0-5); EOSINOPHIL COUNT 0.1 K/uL (0-0.3); HEMATOCRIT 26.6 % (38.0-50.0); IMMATURE GRANULOCYTE (%) 0.5 % (0.0-0.7); INSTRUMENT ABS NEUTROPHIL CT 3.2 K/uL; LYMPHOCYTE COUNT 1.5 K/uL (1.0-2.8); MCH 26.3 PG (29.0-34.0); MCHC 33.1 G/DL (30.0-36.0); MCV 79.6 FL (86-99); MEAN PLAT.VOLUME 10.5 uM^3 (9.0-12.4); MONOCYTE (%) 16.2 % (3-12); NEUTROPHIL COUNT 3.2 K/uL (1.8-6.4); PLATELET COUNT 164 K/uL (156-360); RBC DIS.WIDTH-CV 17.4 % (11.8-14.6); RBC DIS.WIDTH-SD 50.4 % (39-53); RED BLOOD COUNT 3.34 M/uL (4.00-5.50); WHITE BLOOD COUNT 5.9 K/uL (4.1-10.2)
[2017-08-20 06:06] LABS: ANION GAP 12 MEQ/L (2-14); CHLORIDE 109 MEQ/L (99-109); GFR ESTIMATE (CALCULATED) > 59 mL/min/; POTASSIUM 3.7 MEQ/L (3.7-5.4); SAMPLE HEMOLYSIS CHECK 0; SAMPLE ICTERIC CHECK 0; SAMPLE LIPEMIA CHECK 0; SODIUM 147 MEQ/L (136-147); UREA NITROGEN (BUN) 14 mg/dL (9-23)
[2017-08-20 06:10] LABS: GLUCOSE 73 mg/dL (70-99); MAGNESIUM 1.9 mg/dl (1.3-2.7)
[2017-08-20 11:45] LABS: POINT-OF-CARE METER ID UU13113748
[2017-08-20 13:55] LABS: POINT-OF-CARE METER ID UU13113748
[2017-08-20 14:57] LABS: POINT-OF-CARE METER ID UU13113748
[2017-08-20 17:53] LABS: POINT-OF-CARE METER ID UU13113748
[2017-08-20 23:38] LABS: POINT-OF-CARE METER ID UU13113748
[2017-08-21] VITALS (25 sets, daily range): BP systolic 114–178; BP diastolic 59–83
[2017-08-21 05:24] LABS: POINT-OF-CARE METER ID UU14314082
[2017-08-21 08:47] LABS: ANION GAP 10 MEQ/L (2-14); CHLORIDE 107 MEQ/L (99-109); GFR ESTIMATE (CALCULATED) > 59 mL/min/; SAMPLE HEMOLYSIS CHECK 2; SAMPLE ICTERIC CHECK 0; SAMPLE LIPEMIA CHECK 0; SODIUM 144 MEQ/L (136-147); UREA NITROGEN (BUN) 14 mg/dL (9-23)
[2017-08-21 08:53] LABS: GLUCOSE 97 mg/dL (70-99); POTASSIUM 5.1 MEQ/L (3.7-5.4)
[2017-08-21 09:53] LABS: HEMATOCRIT 29.8 % (38.0-50.0); MCH 27.1 PG (29.0-34.0); MCHC 32.9 G/DL (30.0-36.0); MCV 82.3 FL (86-99); MEAN PLAT.VOLUME 9.9 uM^3 (9.0-12.4); PLATELET COUNT 173 K/uL (156-360); RBC DIS.WIDTH-CV 17.4 % (11.8-14.6); RBC DIS.WIDTH-SD 52.4 % (39-53); RED BLOOD COUNT 3.62 M/uL (4.00-5.50); WHITE BLOOD COUNT 5.8 K/uL (4.1-10.2)
[2017-08-21 11:39] LABS: POINT-OF-CARE METER ID UU14314082
[2017-08-21 17:30] LABS: ADD MIUA? YES; BILIRUBIN NEGATIVE; BLOOD NEGATIVE; COLOR YELLOW ((YELLOW)); GLUCOSE (STRIP) NEGATIVE; KETONES NEGATIVE; LEUKOCYTES NEGATIVE; NITRITE NEGATIVE; PROTEIN (STRIP) 100; SPECIFIC GRAVITY 1.014 (1.000-1.030)
[2017-08-21 17:37] LABS: BACTERIA NONE SEEN /HPF; EPITHELIAL CELLS NONE SEEN /HPF; HYALINE CASTS 0-5 /LPF; MUCUS TRACE /LPF; RED BLOOD CELLS 0-5 /HPF (0-5); WHITE BLOOD CELLS 0-5 /HPF (0-5)
[2017-08-21 17:56] LABS: POINT-OF-CARE METER ID UU14314082
[2017-08-21 20:52] LABS: POINT-OF-CARE METER ID UU14314082
[2017-08-22] VITALS (16 sets, daily range): BP systolic 124–174; BP diastolic 72–91
[2017-08-22 00:37] LABS: POINT-OF-CARE METER ID UU13113731; POINT-OF-CARE USER ID 609231305
[2017-08-22 05:51] LABS: POINT-OF-CARE METER ID UU13113748
[2017-08-22 08:04] LABS: EOSINOPHIL COUNT 0.3 K/uL (0-0.3); HEMATOCRIT 29.8 % (38.0-50.0); IMMATURE GRANULOCYTE (%) 0.6 % (0.0-0.7); INSTRUMENT ABS NEUTROPHIL CT 4.6 K/uL; MCH 26.8 PG (29.0-34.0); MCHC 32.9 G/DL (30.0-36.0); MCV 81.4 FL (86-99); MONOCYTE (%) 11.3 % (3-12); MONOCYTE COUNT 0.8 K/uL (0-0.8); NEUTROPHIL (%) 68.6 % (45-76); NEUTROPHIL COUNT 4.6 K/uL (1.8-6.4); PLATELET COUNT 186 K/uL (156-360); RBC DIS.WIDTH-CV 17.2 % (11.8-14.6); RBC DIS.WIDTH-SD 51.1 % (39-53); RED BLOOD COUNT 3.66 M/uL (4.00-5.50); WHITE BLOOD COUNT 6.7 K/uL (4.1-10.2)
[2017-08-22 08:43] LABS: ANION GAP 8 MEQ/L (2-14); CHLORIDE 105 MEQ/L (99-109); GFR ESTIMATE (CALCULATED) 54 mL/min/; GLUCOSE 137 mg/dL (70-99); MAGNESIUM 2.2 mg/dl (1.3-2.7); POTASSIUM 4.6 MEQ/L (3.7-5.4); SAMPLE HEMOLYSIS CHECK 0; SAMPLE ICTERIC CHECK 0; SAMPLE LIPEMIA CHECK 0; SODIUM 143 MEQ/L (136-147); UREA NITROGEN (BUN) 25 mg/dL (9-23)
[2017-08-22 10:21] LABS: POINT-OF-CARE METER ID UU13113731
[2017-08-22 14:43] LABS: POINT-OF-CARE METER ID UU13113731
[2017-08-22 18:23] LABS: POINT-OF-CARE METER ID UU13113748
[2017-08-22 20:32] LABS: POINT-OF-CARE METER ID UU13113748
[2017-08-22 23:54] LABS: POINT-OF-CARE METER ID UU13113748
[2017-08-23] VITALS (25 sets, daily range): BP systolic 152–203; BP diastolic 75–105
[2017-08-23 06:03] LABS: POINT-OF-CARE METER ID UU14174217
[2017-08-23 06:52] LABS: ANION GAP 9 MEQ/L (2-14); CHLORIDE 107 MEQ/L (99-109); GFR ESTIMATE (CALCULATED) > 59 mL/min/; GLUCOSE 160 mg/dL (70-99); POTASSIUM 4.1 MEQ/L (3.7-5.4); SAMPLE HEMOLYSIS CHECK 0; SAMPLE ICTERIC CHECK 0; SAMPLE LIPEMIA CHECK 0; SODIUM 144 MEQ/L (136-147); UREA NITROGEN (BUN) 30 mg/dL (9-23)
[2017-08-23 12:30] LABS: POINT-OF-CARE METER ID UU14162636
[2017-08-23 18:11] LABS: POINT-OF-CARE METER ID UU14174217
[2017-08-23 23:57] LABS: POINT-OF-CARE METER ID UU14174217
[2017-08-24] VITALS (23 sets, daily range): BP systolic 156–196; BP diastolic 72–99
[2017-08-24 05:58] LABS: POINT-OF-CARE METER ID UU13113748
[2017-08-24 09:14] LABS: ANION GAP 7 MEQ/L (2-14); CHLORIDE 111 MEQ/L (99-109); POTASSIUM 3.8 MEQ/L (3.7-5.4); SAMPLE HEMOLYSIS CHECK 0; SAMPLE ICTERIC CHECK 0; SAMPLE LIPEMIA CHECK 0; SODIUM 145 MEQ/L (136-147)
[2017-08-24 09:20] LABS: GFR ESTIMATE (CALCULATED) > 59 mL/min/; UREA NITROGEN (BUN) 24 mg/dL (9-23)
[2017-08-24 09:22] LABS: GLUCOSE 84 mg/dL (70-99)
[2017-08-24 09:24] LABS: POINT-OF-CARE METER ID UU14174217
[2017-08-24 13:05] LABS: POINT-OF-CARE METER ID UU13113748
[2017-08-24 13:31] LABS: POINT-OF-CARE METER ID UU13113748
[2017-08-24 17:36] LABS: POINT-OF-CARE METER ID UU13113748
[2017-08-25] VITALS (15 sets, daily range): BP systolic 148–198; BP diastolic 63–104
[2017-08-25 00:48] LABS: POINT-OF-CARE METER ID UU13113748; POINT-OF-CARE USER ID RADDRS44
[2017-08-25 06:03] LABS: POINT-OF-CARE METER ID UU13113748; POINT-OF-CARE USER ID RADDRS44
[2017-08-25 06:15] LABS: HEMATOCRIT 31.5 % (38.0-50.0); MCH 26.8 PG (29.0-34.0); MCHC 32.4 G/DL (30.0-36.0); MCV 82.9 FL (86-99); MEAN PLAT.VOLUME 9.6 uM^3 (9.0-12.4); PLATELET COUNT 226 K/uL (156-360); RBC DIS.WIDTH-CV 16.8 % (11.8-14.6); RBC DIS.WIDTH-SD 50.3 % (39-53); WHITE BLOOD COUNT 6.3 K/uL (4.1-10.2)
[2017-08-25 06:38] LABS: ANION GAP 7 MEQ/L (2-14); CHLORIDE 107 MEQ/L (99-109); GFR ESTIMATE (CALCULATED) > 59 mL/min/; POTASSIUM 3.8 MEQ/L (3.7-5.4); SAMPLE HEMOLYSIS CHECK 0; SAMPLE ICTERIC CHECK 0; SAMPLE LIPEMIA CHECK 0; SODIUM 138 MEQ/L (136-147); UREA NITROGEN (BUN) 17 mg/dL (9-23)
[2017-08-25 06:39] LABS: GLUCOSE 174 mg/dL (70-99)
[2017-08-25 12:36] LABS: POINT-OF-CARE METER ID UU13113748
[2017-08-25 17:38] LABS: POINT-OF-CARE METER ID UU13113748
[2017-08-26] VITALS (13 sets, daily range): BP systolic 134–189; BP diastolic 72–97
[2017-08-26 00:09] LABS: POINT-OF-CARE METER ID UU13113748; POINT-OF-CARE USER ID RADDRS44
[2017-08-26 05:00] LABS: HEMATOCRIT 30.1 % (38.0-50.0); MCH 27.1 PG (29.0-34.0); MCHC 32.6 G/DL (30.0-36.0); MCV 83.1 FL (86-99); MEAN PLAT.VOLUME 10.2 uM^3 (9.0-12.4); PLATELET COUNT 200 K/uL (156-360); RBC DIS.WIDTH-CV 16.1 % (11.8-14.6); RBC DIS.WIDTH-SD 49.1 % (39-53); RED BLOOD COUNT 3.62 M/uL (4.00-5.50); WHITE BLOOD COUNT 3.6 K/uL (4.1-10.2)
[2017-08-26 05:11] LABS: CHLORIDE 111 mEq/L (99-109); POTASSIUM 4.1 mEq/L (3.7-5.4); SODIUM 139 mEq/L (136-147)
[2017-08-26 05:13] LABS: GLUCOSE 168 mg/dL (70-99)
[2017-08-26 05:14] LABS: ANION GAP 8 MEQ/L (2-14)
[2017-08-26 05:17] LABS: GFR ESTIMATE (CALCULATED) > 59 mL/min/
[2017-08-26 05:18] LABS: UREA NITROGEN (BUN) 17 mg/dL (9-23)
[2017-08-26 12:45] LABS: POINT-OF-CARE METER ID UU14208751
[2017-08-26 18:10] LABS: POINT-OF-CARE METER ID UU13113781
[2017-08-27 00:12] LABS: POINT-OF-CARE METER ID UU14174216
[2017-08-27 01:10] VITALS: BP 174/80
[2017-08-27 02:42] VITALS: BP 156/72
[2017-08-27 07:45] VITALS: BP 194/96
[2017-08-27 08:34] LABS: HEMATOCRIT 28.5 % (38.0-50.0); MCH 26.9 PG (29.0-34.0); MCHC 33.3 G/DL (30.0-36.0); MCV 80.7 FL (86-99); MEAN PLAT.VOLUME 9.6 uM^3 (9.0-12.4); PLATELET COUNT 216 K/uL (156-360); RBC DIS.WIDTH-CV 15.7 % (11.8-14.6); RBC DIS.WIDTH-SD 45.9 % (39-53); RED BLOOD COUNT 3.53 M/uL (4.00-5.50); WHITE BLOOD COUNT 3.5 K/uL (4.1-10.2)
[2017-08-27 08:54] LABS: INTER. NORMALIZED RATIO 1.2; PROTHROMBIN TIME 14.1 SEC (10.2-12.9)
[2017-08-27 08:57] LABS: ALKALINE PHOSPHATASE 58 IU/L (3-129); ANION GAP 9 MEQ/L (2-14); CHLORIDE 106 MEQ/L (99-109); GFR ESTIMATE (CALCULATED) > 59 mL/min/; GLUCOSE 156 mg/dL (70-99); POTASSIUM 3.7 MEQ/L (3.7-5.4); PTT 35.1 SEC (25-37); SAMPLE HEMOLYSIS CHECK 0; SAMPLE ICTERIC CHECK 0; SAMPLE LIPEMIA CHECK 0; SODIUM 138 MEQ/L (136-147); TOTAL BILIRUBIN 0.4 MG/DL (0.0-1.0); UREA NITROGEN (BUN) 16 mg/dL (9-23)
[2017-08-27 11:25] LABS: POINT-OF-CARE METER ID UU14314088
[2017-08-27 13:10] VITALS: BP 152/73
[2017-08-27 15:37] VITALS: BP 169/80
[2017-08-27 18:15] LABS: POINT-OF-CARE METER ID UU14314088
[2017-08-27 19:30] VITALS: BP 170/79
[2017-08-28] VITALS: BP 152/70
[2017-08-28 00:25] LABS: POINT-OF-CARE METER ID UU14174216
[2017-08-28 03:51] VITALS: BP 168/77
[2017-08-28 06:36] LABS: POINT-OF-CARE METER ID UU14174216
[2017-08-28] MEDS ORDERED: IMDUR30 MG PO (07:28)
[2017-08-28] MEDS ORDERED: APRESOLINE10 MG PO (07:28)
[2017-08-28] MEDS ORDERED: CLONIDINE HCL0.2 MG PO (07:28)
[2017-08-28] MEDS ORDERED: LISINOPRIL40 MG PO (07:29)
[2017-08-28] MEDS ORDERED: CARVEDILOL25 MG PO (07:29)
[2017-08-28] MEDS ORDERED: ASPIR-LOW81 MG PO (07:29)
[2017-08-28] MEDS ORDERED: QUETIAPINE FUMA50 MG PO (07:30)
[2017-08-28] MEDS ORDERED: FAMOTIDINE20 MG PO (07:31)
[2017-08-28] MEDS ORDERED: LASIX40 MG PO (07:37)
[2017-08-28] MEDS ORDERED: DOCUSATE SODIU100 MG PO (07:37)
[2017-08-28] MEDS ORDERED: K-DUR10 MEQ PO (07:44)
[2017-08-28 07:55] VITALS: BP 176/78
[2017-08-28] MEDS ORDERED: DIGOXIN250 MCG PO (09:37)
[2017-08-28 11:47] LABS: POINT-OF-CARE METER ID UU14314088
[2017-08-28 12:32] VITALS: BP 144/58
[2017-08-28 17:50] VITALS: BP 169/70
== END 2017-08-28 20:50 | DRG 917 ==
LOC: EME → EDBD 21:14 → EME 21:14 → 4WEST 23:23 → EDOF 23:23 → ENRESERV 23:26 → 4WEST 08-15 00:09 → ENRESERV 08-26 11:29 → 4EAST 08-26 12:29
PROVIDERS: Emergency Medicine; Internal Medicine; Internal Medicine Critical Care Medicine; Physician Assistant Medical; Surgery
DX: T40.5X1A Poisoning by cocaine, accidental (unintentional), initial encounter (principal); I46.8 Cardiac arrest due to other underlying condition; G93.41 Metabolic encephalopathy; J69.0 Pneumonitis due to inhalation of food and vomit; I24.9 Acute ischemic heart disease, unspecified; I47.2 Ventricular tachycardia; I25.5 Ischemic cardiomyopathy; I25.10 Atherosclerotic heart disease of native coronary artery without angina pectoris; E78.00 Pure hypercholesterolemia, unspecified; I50.9 Heart failure, unspecified; I11.0 Hypertensive heart disease with heart failure; E11.51 Type 2 diabetes mellitus with diabetic peripheral angiopathy without gangrene; E11.649 Type 2 diabetes mellitus with hypoglycemia without coma; R56.9 Unspecified convulsions; F14.90 Cocaine use, unspecified, uncomplicated; F12.90 Cannabis use, unspecified, uncomplicated; E78.5 Hyperlipidemia, unspecified; E87.6 Hypokalemia; G93.1 Anoxic brain damage, not elsewhere classified; G54.6 Phantom limb syndrome with pain; I16.0 Hypertensive urgency; J44.9 Chronic obstructive pulmonary disease, unspecified; F17.200 Nicotine dependence, unspecified, uncomplicated; J96.01 Acute respiratory failure with hypoxia; I21.3 ST elevation (STEMI) myocardial infarction of unspecified site; E83.42 Hypomagnesemia; E83.39 Other disorders of phosphorus metabolism; I25.9 Chronic ischemic heart disease, unspecified; I73.9 Peripheral vascular disease, unspecified; Z91.19 Patient's noncompliance with other medical treatment and regimen; Z79.4 Long term (current) use of insulin; Z89.511 Acquired absence of right leg below knee; Z89.512 Acquired absence of left leg below knee; Z95.1 Presence of aortocoronary bypass graft
CPT/HCPCS: 36600; 70450; 71010; 74230; 80048; 80048 91; 80053; 80162; 81003; 82330; 82803; 82948; 83605; 83735; 83880; 84100; 84484; 84999; 85025; 85025 91; 85027; 85610; 85730; 87040; 87070; 87077; 87086; 87106; 87186; 87205; 87641; 90686; 92610 GN; 92611 GN; 93005; 93306; 94002; 94003; 94640; 94640 76; 94799; 95819; 97530 GP; 99202; 99281; 99285; C1751; J0295; J0360; J1160; J1630; J1650; J1815; J1940; J1953; J2060; J2250; J2310; J2543; J2704; J3010; J3370; J3475; J3480; J7030; J7042; J7050; S0028